=== PATIENT | female | born 1995 | race Caucasian/White ===

== ENCOUNTER 2016-04-03 08:31 | Inpatient (IN) | payer OTHER ==
[~2016-04-03] VITALS: Ht 170.2 cm; Wt 115.0 kg
[2016-04-03] VITALS (8 sets, daily range): BP systolic 122–142; BP diastolic 60–79
[~2016-04-03 08:31] MED LIST: ALBU1.25 INH; ZANTTAB9 PO
[2016-04-03] MEDS: LR 1,000 ML IV SCH ×4 (08:49→22:22)
[2016-04-03] MEDS ORDERED: PRENTAB9 PO (08:51)
[2016-04-03] MEDS ORDERED: BICITRA 30ML SOLN UDC PO ONE (09:00)
[2016-04-03 09:21] LABS: MEAN CORPUSCULAR HEMOGLOBIN 32.4 pg (27.0-33.0); RED CELL DISTRIBUTION WIDTH 12.9 % (11.5-14.5); WHITE BLOOD COUNT 10.3 K/mm3 (4.0-10.0)
[2016-04-03] MEDS ORDERED: MORPHINE PRES-FREE INJ 10 MG/10 ML VIAL (J2274) As Ordered ONE (12:55)
[2016-04-03] MEDS ORDERED: METOCLOPRAMIDE INJ 10MG/2ML VIAL (J2765) IV PRN ×2 (13:02→14:45)
[2016-04-03] MEDS ORDERED: ONDANSETRON 4MG/2ML VIAL (J2405) IV PRN ×2 (13:02→14:45)
[2016-04-03] MEDS ORDERED: NALBUPHINE HCL 10 MG/ML AMP (J2300) IV PRN (13:02)
[2016-04-03] MEDS ORDERED: NALOXONE INJ 0.4 MG/1 ML VIAL (J2310) IV PRN ×2 (13:02)
[2016-04-03] MEDS ORDERED: PHENYLephrine HCL 500 MCG/5 ML (100MCG/ML) SYRINGE (J2370) As Ordered ONE (13:36)
[2016-04-03] MEDS ORDERED: ONDANSETRON 4MG/2ML VIAL (J2405) As Ordered ONE (13:36)
[2016-04-03] MEDS ORDERED: OXYTOCIN INJ 10 UNITS/ML VIAL (J2590) As Ordered ONE (13:36)
[2016-04-03] MEDS ORDERED: RHOGAM 300 MCG (1500 IU) INJ (J2790) IM SCH (14:15)
[2016-04-03] MEDS ORDERED: MEASLES,MUMPS,RUBELLA VACCINE INJ (MMR-II) (90707) SC SCH (14:15)
[2016-04-03] MEDS ORDERED: MOM 30ML SUSPENSION UDC PO PRN (14:15)
[2016-04-03] MEDS ORDERED: PERCOCET 5MG/325MG TAB PO PRN ×3 (14:15→14:45)
[2016-04-03] MEDS ORDERED: DOCUSATE SODIUM 100 MG CAP PO PRN (14:15)
[2016-04-03] MEDS ORDERED: OXYTOCIN DRIP 30 UNITS in APPROPRIATE DILUENT 1 EA IV SCH (14:15)
[2016-04-03] MEDS ORDERED: MEPERIDINE INJ 25 MG/ML VIAL (J2175) IV PRN (14:45)
[2016-04-03] MEDS ORDERED: fentaNYL 100 MCG/2 ML INJECTION (J3010) IV PRN (14:45)
[2016-04-03] MEDS ORDERED: LR 1,000 ML IV SCH (14:45)
[2016-04-03] MEDS ORDERED: KETOROLAC 30 MG/ML VIAL (J1885) IV SCH (15:00)
--- NOTE | 2016-04-03 17:11 | RO ---
DATE OF PROCEDURE: 04/03/2016 PREOPERATIVE DIAGNOSIS: 1. Intrauterine at 39 weeks for primary section. 2. Breech presentation for indication for section. POSTOPERATIVE DIAGNOSES: 1. Intrauterine at 39 weeks for primary section. 2. Breech presentation for indication for section. PROCEDURE PERFORMED: Primary lower transverse section. SURGEON: Hortencia Ogden MD ASSISTANTS: Keiko Turner CNM Medical Student FRANCOIS Schultz III ANESTHESIA: Spinal. ESTIMATED BLOOD LOSS: 400 mL. INTRAVENOUS FLUIDS: 1500 mL of lactated Ringer's solution. URINE OUTPUT: 150 mL. PREOPERATIVE ANTIBIOTICS: 2 grams of Ancef. OPERATIVE FINDINGS: Liveborn male in a minh breech presentation. scores 8 and 9. Weight was 7 pounds 13 ounces, 3548 grams. SPECIMENS: Cord blood. DESCRIPTION OF PROCEDURE: After informed consent was obtained and written consent was reviewed, the patient was brought to the operating room where spinal anesthesia was obtained. She was then placed in the lithotomy position with a left lateral tilt. A Mejia catheter was then placed and set to gravity. She was then prepped and draped in a normal sterile fashion. A time-out in the operating room was then performed, identifying the patient, procedure to be performed as well as drug allergies. The anesthesia was then tested and deemed to be adequate. A Pfannenstiel skin incision was then made, and this incision was carried down to the underlying rectus fascia. The fascia was then scored, and this incision was extended bilaterally. The fascia was then dissected off the underlying rectus muscles both superiorly and inferiorly. The rectus muscles were in the midline. The peritoneum was then entered. The vesicouterine peritoneum was then identified, was tented and excised to create a bladder flap. The bladder blade was then placed to retract back the bladder. A curvilinear incision was then made in the lower uterine segment and amniotomy was then performed productive of clear fluid. breech was brought to the level of the incision. Lower extremities were then delivered, fetus was then delivered down to the level of the scapula where the upper extremities were then delivered followed by delivery of head. The cord was clamped times two and was cut, the infant was taken over to the warmer with a good cry. Cord blood was then obtained. The placenta was then drained and delivered grossly intact. The uterus was then exteriorized and cleared of all clots and debris. The uterine incision was then closed in two layers using #0 Vicryl in a running locking fashion, followed by a second layer in a running nonlocking fashion. The surgical sites were inspected and noted to be hemostatic. The uterus was then returned in the patient's abdomen where it was once again inspected and noted to be hemostatic. The anterior peritoneum was then reapproximated with #3-0 Vicryl. The rectus muscles were reapproximated with #3-0 Vicryl. The fascia was then closed with #0 Vicryl in a running nonlocking fashion. The subcutaneous tissue was then irrigated and suctioned. The Latrice's fascia was reapproximated with #3-0 Vicryl. Several subdermal stitches were placed of #3-0 Vicryl, and the skin was closed with #4-0 Monocryl in a subcuticular fashion. The incision was then cleaned and dried. Mastisol was applied above and below the incision. Steri-Strips were applied over the incision, and the incision was then dressed. The patient was then taken to recovery in stable condition. Counts were correct.
[2016-04-03] MEDS: KETOROLAC 30 MG/ML VIAL (J1885) IV SCH ×2 (17:21→22:23)
[2016-04-04 02:00] VITALS: BP 113/68
[2016-04-04] MEDS: LR 1,000 ML IV SCH (02:44)
[2016-04-04] MEDS: KETOROLAC 30 MG/ML VIAL (J1885) IV SCH ×2 (04:52→10:46)
[2016-04-04 05:37] VITALS: BP 130/63
[2016-04-04 07:44] LABS: MEAN CORPUSCULAR HEMOGLOBIN 30.5 pg (27.0-33.0); MEAN CORPUSCULAR HGB CONC 33.5 g/dl (32.0-36.5); WHITE BLOOD COUNT 10.8 K/mm3 (4.0-10.0)
[2016-04-04] MEDS: PRENATAL VITAMIN TAB PO SCH (08:07)
[2016-04-04] MEDS ORDERED: OXYC1TAB23 PO (09:43)
[2016-04-04] MEDS ORDERED: COLA100C PO (09:45)
[2016-04-04] MEDS ORDERED: IBUP600T26 PO (09:45)
[2016-04-04 10:00] VITALS: BP 141/84
[2016-04-04 14:00] VITALS: BP 136/77
[2016-04-04 18:21] VITALS: BP 134/69
[2016-04-04] MEDS: IBUPROFEN 800 MG TAB PO SCH (18:27)
[2016-04-05] MEDS: IBUPROFEN 800 MG TAB PO SCH (03:11)
[2016-04-05 06:07] VITALS: BP 126/77
--- NOTE | 2016-04-05 08:46 | DSES ---
DATE OF ADMISSION: 04/03/2016 DATE OF DISCHARGE: 04/05/2016 ADMITTING DIAGNOSES: 1. 39 weeks gestation. 2. Breech presentation. DISCHARGE DIAGNOSES: 1. 39 weeks gestation. 2. Breech presentation. 3. Status post primary low transverse section. DISCHARGE SUMMARY: The patient is a 20-year-old, now para 1. She was admitted at 39 weeks gestation with the diagnosis of breech presentation. Given the breech presentation, she underwent a primary low transverse section. This was uncomplicated. By postoperative day #2, she was meeting all discharge criteria. Her pain was well-controlled with oral pain medications. She was ambulating without any difficulty. Lochia was decreasing and minimal. Voiding spontaneously. Tolerating a regular diet. No fever, chills, nausea, vomiting, headache, shortness breath, or chest pain. She was breast-feeding. Vitals on the date of discharge, blood pressure was normotensive. Normal heart rate. Afebrile. Urine output spontaneous and adequate in volume. Heart regular rate and rhythm. No murmurs, gallops, or rubs. Lungs clear to auscultation bilaterally. No wheeze, crackles, rales, or rhonchi. Abdomen soft, nontender, nondistended. Uterine fundus was firm at 2 cm below the umbilicus. Incision was clean, dry and intact without any erythema or induration. Extremities nonedematous and nontender. LABS: Preoperative hemoglobin/hematocrit 12.9/35.7, postoperative hemoglobin/hematocrit 11.1/33.0. ASSESSMENT/PLAN: Postoperative day #2 recovering appropriately, hemodynamically stable, afebrile, with good pain control. She was discharged home with routine fever, infectious pain and bleeding precautions. Her discharge medications include Percocet, Motrin and Colace. She is to follow up in the office in 2 weeks for incision check. JAZMIN
[2016-04-05] MEDS: PRENATAL VITAMIN TAB PO SCH (09:01)
[2016-04-05] MEDS ORDERED: OXYC1TAB23 PO ×2 (09:59→10:00)
== END 2016-04-05 10:55 | disposition home or self-care (01) | DRG 540 ==
LOC: M LDI 08:31 → M OBS 15:55
PROVIDERS: ADMIT Obstetrics & Gynecology; ATTEND Obstetrics & Gynecology
PROC: 10D00Z1 Extraction of Products of Conception, Low, Open Approach (ICD-10-PCS; principal; 2016-04-03 10:30)
DX: O64.1XX0 Obstructed labor due to breech presentation, not applicable or unspecified (principal); Z37.0 Single live birth; Z3A.39 39 weeks gestation of pregnancy

== ENCOUNTER → 2017-03-06 | Outpatient (REF) | payer OTHER ==
[~2017-03-06] MED LIST changes: +COLA100C5 PO; +IBUP-1022 PO; +OXYC1TAB23 PO; +PRENTAB9 PO
[2017-03-06 13:57] LABS: FOLATE 7.6 NG/ML; VITAMIN B12 LEVEL 458 PG/ML
[2017-03-06 13:59] LABS: FREE T4 1.03 NG/DL (0.76-1.46); TOTAL PROTEIN 7.6 GM/DL (6.4-8.2)
[2017-03-07 12:30] LABS: ALBUMIN 4.39 GM/DL (3.29-5.55); ALBUMIN % 57.7 % (55.8-66.1); GAMMA GLOBULIN % 15.5 % (11.1-18.8)
== END ==
LOC: M LABNEURO 13:00
PROVIDERS: ATTEND Psychiatry & Neurology Neurology
DX: G62.9 Polyneuropathy, unspecified (principal)

== ENCOUNTER → 2017-04-04 | Outpatient (CLI) | payer OTHER, MEDICAID | LOC: M PAIN 08:30 | DX: M46.96 Unspecified inflammatory spondylopathy, lumbar region (principal); G43.909 Migraine, unspecified, not intractable, without status migrainosus; K21.9 Gastro-esophageal reflux disease without esophagitis; Z79.899 Other long term (current) drug therapy; Z88.8 Allergy status to other drugs, medicaments and biological substances | CPT/HCPCS: G0463 ==

== ENCOUNTER → 2017-04-04 | Outpatient (CLI) | payer OTHER | LOC: M RAD 10:21 | DX: M79.1 Myalgia (principal) | CPT/HCPCS: 72080 ==

== ENCOUNTER → 2017-04-30 | Outpatient (CLI) | payer OTHER ==
[~2017-04-30] MED LIST changes: -ALBU1.25 INH; +BUPIVACAINE HCL 0.25% 10 ML VIAL As Ordered; +BUPIVACAINE HCL 0.25% 30 ML VIAL As Ordered; -COLA100C5 PO; -IBUP-1022 PO; -OXYC1TAB23 PO; -PRENTAB9 PO; +TRIAMCINOLONE ACETONIDE SUSP 40 MG/ML VIAL (J3301) As Ordered; -ZANTTAB9 PO
== END ==
LOC: M PAIN 13:45
DX: G89.29 Other chronic pain (principal); M54.5 Low back pain; M79.1 Myalgia; G43.909 Migraine, unspecified, not intractable, without status migrainosus; Z79.899 Other long term (current) drug therapy; Z88.8 Allergy status to other drugs, medicaments and biological substances
CPT/HCPCS: J3301

== ENCOUNTER → 2017-05-15 | Outpatient (CLI) | payer OTHER | LOC: M PAIN 09:30 | DX: M79.1 Myalgia (principal); M46.96 Unspecified inflammatory spondylopathy, lumbar region; Z79.899 Other long term (current) drug therapy; Z88.8 Allergy status to other drugs, medicaments and biological substances | CPT/HCPCS: G0463 ==

== ENCOUNTER → 2017-06-03 | Outpatient (CLI) | payer OTHER ==
[2017-06-03 14:44] LABS: BASO # 0.1 10^3/uL (0.0-0.2); BASO % 0.5 % (0.0-1.0); HEMATOCRIT 42.4 % (36.0-47.0); HEMOGLOBIN 14.6 g/dl (12.0-16.0); IMMATURE GRANULOCYTE % 0.5 % (0-3.0); LYMPH # 2.7 10^3/uL (1.5-6.5); LYMPH % 25.4 % (24.0-44.0); MEAN CORPUSCULAR HEMOGLOBIN 30.4 pg (27.0-33.0); MEAN CORPUSCULAR HGB CONC 34.4 g/dl (32.0-36.5); MEAN CORPUSCULAR VOLUME 88.3 fl (80.0-96.0); MONO # 0.7 10^3/uL (0.0-0.8); MONO % 6.6 % (0.0-5.0); NEUTROPHILS # 7.2 10^3/uL (1.8-7.7); PLATELET COUNT, AUTOMATED 286 10^3/uL (150-450); RED CELL DISTRIBUTION WIDTH 12.2 % (11.5-14.5); WHITE BLOOD COUNT 10.7 10^3/uL (4.0-10.0)
[2017-06-03 14:53] LABS: TOTAL 25(OH) VITAMIN D 21.6 NG/ML (30.0-100.0)
== END ==
LOC: M LAB 13:53
DX: R53.83 Other fatigue (principal); R63.5 Abnormal weight gain
CPT/HCPCS: 82306

== ENCOUNTER → 2017-06-18 | Outpatient (CLI) | payer OTHER ==
[~2017-06-18] MED LIST changes: +diazePAM 5 MG TAB As Ordered; +oxyCODONE 5MG TAB As Ordered
== END ==
LOC: M PAIN 15:15
DX: G89.29 Other chronic pain (principal); M79.1 Myalgia; M54.5 Low back pain; G43.909 Migraine, unspecified, not intractable, without status migrainosus; Z79.899 Other long term (current) drug therapy; Z88.8 Allergy status to other drugs, medicaments and biological substances
CPT/HCPCS: J3301

== ENCOUNTER → 2017-07-08 | Outpatient (CLI) | payer OTHER | LOC: M PAIN 13:45 | DX: M79.1 Myalgia (principal); G43.909 Migraine, unspecified, not intractable, without status migrainosus; M54.5 Low back pain; Z79.899 Other long term (current) drug therapy; Z88.8 Allergy status to other drugs, medicaments and biological substances | CPT/HCPCS: G0463 ==

== ENCOUNTER → 2017-09-13 | Outpatient (CLI) | payer OTHER | LOC: M PAIN 09:15 | DX: M79.1 Myalgia (principal); M46.96 Unspecified inflammatory spondylopathy, lumbar region; G43.909 Migraine, unspecified, not intractable, without status migrainosus; Z79.899 Other long term (current) drug therapy; Z88.8 Allergy status to other drugs, medicaments and biological substances | CPT/HCPCS: G0463 ==

== ENCOUNTER → 2017-11-13 | Outpatient (CLI) | payer OTHER | LOC: M PAIN 09:45 | DX: M79.1 Myalgia (principal); M46.96 Unspecified inflammatory spondylopathy, lumbar region; G43.909 Migraine, unspecified, not intractable, without status migrainosus; E66.01 Morbid (severe) obesity due to excess calories; Z68.41 Body mass index [BMI] 40.0-44.9, adult; Z79.899 Other long term (current) drug therapy; Z88.8 Allergy status to other drugs, medicaments and biological substances | CPT/HCPCS: G0463 ==

== ENCOUNTER → 2017-12-11 | Outpatient (CLI) | payer OTHER ==
[~2017-12-11] MED LIST changes: -diazePAM 5 MG TAB As Ordered; -oxyCODONE 5MG TAB As Ordered
== END ==
LOC: M PAIN 09:15
DX: G89.29 Other chronic pain (principal); M79.1 Myalgia; G43.909 Migraine, unspecified, not intractable, without status migrainosus; Z79.3 Long term (current) use of hormonal contraceptives; Z79.899 Other long term (current) drug therapy; Z88.8 Allergy status to other drugs, medicaments and biological substances
CPT/HCPCS: J3301

== ENCOUNTER → 2018-01-10 | Outpatient (CLI) | payer OTHER | LOC: M PAIN 15:00 | DX: M79.18 Myalgia, other site (principal); M46.96 Unspecified inflammatory spondylopathy, lumbar region; G43.909 Migraine, unspecified, not intractable, without status migrainosus; E66.01 Morbid (severe) obesity due to excess calories; Z68.41 Body mass index [BMI] 40.0-44.9, adult; Z79.899 Other long term (current) drug therapy; Z88.8 Allergy status to other drugs, medicaments and biological substances | CPT/HCPCS: G0463 ==

== ENCOUNTER → 2018-04-15 | Outpatient (CLI) | payer OTHER ==
[~2018-04-15] MED LIST changes: +ALBU1.25 INH; -BUPIVACAINE HCL 0.25% 10 ML VIAL As Ordered; -BUPIVACAINE HCL 0.25% 30 ML VIAL As Ordered; +COLA100C5 PO; +IBUP-1022 PO; +OXYC1TAB23 PO; +PRENTAB9 PO; -TRIAMCINOLONE ACETONIDE SUSP 40 MG/ML VIAL (J3301) As Ordered; +ZANTTAB9 PO
== END ==
LOC: M LAB 13:57
PROVIDERS: ATTEND Physician Assistant Medical
DX: E55.0 Rickets, active (principal)

== ENCOUNTER 2019-03-23 09:45 | Inpatient (IN) | payer OTHER ==
[~2019-03-23] VITALS: Ht 170.2 cm; Wt 116.3 kg
[~2019-03-23 09:45] MED LIST changes: +MAALOX 30 ML SUSP *UDC PO PRN; +MOM 30ML SUSPENSION UDC PO PRN; +SERTRALINE 100 MG TAB PO SCH
[2019-03-23] MEDS ORDERED: NS 1,000 ML IV ONE ×2 (10:30→12:45)
[2019-03-23 10:45] LABS: BASO % 0.3 % (0.0-1.0); HEMATOCRIT 36.8 % (36.0-47.0); HEMOGLOBIN 12.1 g/dl (12.0-15.5); LYMPH # 0.8 10^3/uL (1.5-5.0); LYMPH % 12.1 % (24.0-44.0); MEAN CORPUSCULAR HEMOGLOBIN 30.3 pg (27.0-33.0); MEAN CORPUSCULAR HGB CONC 32.9 g/dl (32.0-36.5); MEAN CORPUSCULAR VOLUME 92.2 fl (80.0-96.0); MONO # 0.5 10^3/uL (0.0-0.8); MONO % 7.2 % (0.0-5.0); NEUTROPHILS # 5.5 10^3/uL (1.5-8.5); PLATELET COUNT, AUTOMATED 209 10^3/uL (150-450); RED BLOOD COUNT 3.99 10^6/uL (4.00-5.40); WHITE BLOOD COUNT 6.8 10^3/uL (4.0-10.0)
[2019-03-23] MEDS ORDERED: ACETAMINOPHEN 500 MG TAB PO ONE ×2 (10:45)
[2019-03-23] MEDS ORDERED: XULA1DIS TD (10:58)
[2019-03-23] MEDS ORDERED: IBUP80TA PO (10:58)
[2019-03-23] MEDS ORDERED: SERT-138 PO (10:58)
[2019-03-23] MEDS ORDERED: TOPI100T9 PO (10:58)
[2019-03-23 11:22] LABS: ALT/SGPT 23 U/L (12-78); BILIRUBIN,DIRECT 0.2 MG/DL (0.0-0.2); BILIRUBIN,TOTAL 0.4 MG/DL (0.2-1.0); BLOOD UREA NITROGEN 9 MG/DL (7-18); CARBON DIOXIDE LEVEL 23 MEQ/L (21-32); CHLORIDE LEVEL 105 MEQ/L (98-107); CK-MB VALUE MASS < 1.0 NG/ML (<3.6); CPK CREATINE PHOSPHOKINASE 70 U/L (26-192); CREATININE FOR GFR 0.71 MG/DL (0.55-1.30); FREE T4 1.08 NG/DL (0.76-1.46); GLOMERULAR FILTRATION RATE > 60.0 (>60); GLUCOSE, FASTING 91 MG/DL (70-100); LIPASE 78 U/L (73-393); MB/CK RELATIVE INDEX 1.43 (< OR =4); POTASSIUM SERUM 3.3 MEQ/L (3.5-5.1); SODIUM LEVEL 137 MEQ/L (136-145); TOTAL PROTEIN 6.7 GM/DL (6.4-8.2); TROPONIN I < 0.02 NG/ML (< 0.10)
--- NOTE | 2019-03-23 11:55 | REP ---
Clinical: Chest pain. Technique: Portable AP view of the chest. Comparison: None. Findings: Large right lower lobe opacity suggests infiltrate/pneumonia. Correlation required. Follow-up is recommended. Impression: Large right lower lobe opacity. Consider PA and lateral chest x-ray for more definitive evaluation. Electronically Signed by Andrew Montoya MD 03/23/2019 11:46 A
[2019-03-23] MEDS ORDERED: IBUPROFEN 800 MG TAB PO ONE (12:00)
[2019-03-23] MEDS ORDERED: IBUPROFEN 800 MG TAB PO PRN (12:00)
[2019-03-23] MEDS ORDERED: POTASSIUM CHLORIDE 10 MEQ SR TABLET PO ONE ×2 (12:00→12:45)
[2019-03-23 12:06] LABS: INFLUENZA A AMPLIFICATION NEGATIVE (NEGATIVE); INFLUENZA B AMPLIFICATION NEGATIVE (NEGATIVE)
[2019-03-23] MEDS ORDERED: AZITHROMYCIN INJ 500 MG, VIAL MATE ADAPTER 1 EACH in D5W 250 ML IV ONE (12:30)
[2019-03-23] MEDS ORDERED: cefTRIAXone SOD 2 GM in D5W MINI-BAG PLUS 50 ML IV ONE (12:30)
[2019-03-23] MEDS ORDERED: ISOVUE-370 76% 100ML VIAL (Q9967) As Ordered ONE (12:40)
[2019-03-23] MEDS ORDERED: IPRATROPIUM 0.5MG/ALBUTEROL 2.5MG INH SOL UD 3ML (DUONEB)(J7620) NEB PRN (13:00)
[2019-03-23] MEDS ORDERED: RANI75TA39 PO (13:16)
--- NOTE | 2019-03-23 13:24 | REP ---
Clinical: Chest pain. Abnormal x-ray. Technique: Axial contrast enhanced images from the thoracic inlet to the upper abdomen with coronal and sagittal re-formations. Findings: There is complete consolidation with air bronchograms involving the right middle lobe and associated reactive mediastinal and right hilar adenopathy. Patchy infiltrates are also identified within the bilateral lower lobes and findings are compatible with acute multifocal pneumonia. No effusion. No pneumothorax. Mediastinum demonstrates normal pulmonary vasculature, thoracic aorta and heart/pericardium. Surrounding musculoskeletal structures are intact. Impression: Multi focal pneumonia primarily involving the right middle lobe. Electronically Signed by Andrew Montoya MD 03/23/2019 01:16 P
[2019-03-23] MEDS ORDERED: amLODIPine 5 MG TAB PO ONE (13:30)
--- NOTE | 2019-03-23 13:34 | HPEPDOC ---
General Date of Admission 03/23/19 Date of Service: Mar 23, 2019 Chief Complaint The patient is a 23-year-old female admitted with a reason for visit of Fever/Chest Pain. Source: Patient Exam Limitations: No limitations Timing/Duration: Other (5 days) Severity: Other (, not applicable) Associated Symptoms: Fever History of Present Illness This is 23 years old, obese, white female past medical history of migraine, anxiety disorder developed fever, cough, dizziness, lower back pain, chest pain since last 5 days, chest pain, exact has abated by coughing all over the chest, nonradiating, relieved with ibuprofen, but persistent in character also associated with back pain, cough and fever since last 5 days. Patient was diagnosed with a right lower lobe infiltrate on chest x-ray and being admitted for community acquired pneumonia. Home Medications Scheduled Norelgestromin/Ethin.estradiol (Xulane Patch) 1 Each Patch.tdwk, 1 PATCH TD ASDI RECTED, (Reported) APPLY WEEKLY FOR 3 WEEKS THEN 1 WEEK OFF, REMOVED PATCH ON 03/19/19 FOR WEEK OFF Ranitidine HCl (Ranitidine HCl) 75 Mg Tablet, 75 MG PO DAILY, (Reported) Sertraline HCl (Sertraline HCl) 100 Mg Tablet, 100 MG PO DAILY, (Reported) Topiramate (Topiramate) 100 Mg Tablet, 100 MG PO QHS, (Reported) Scheduled PRN Ibuprofen (Ibuprofen) 800 Mg Tablet, 800 MG PO Q6H PRN for PAIN, (Reported) Allergies Coded Allergies: No Known Drug Allergies (Verified Allergy, Unknown, 03/23/19) Past Medical History Medical History Migraine headache, anxiety Surgical History None Family History Significant Family History: No pertinent family hx Social History * Smoker: Denies Alcohol: Denies Drugs: denies A-FIB/CHADSVASC A-FIB History Current/History of A-Fib/PAF?: No Review of Systems Constitutional: Reports: Fever, Weakness Eyes: Denies: Pain, Vision change, Conjunctivae inflammation, Eyelid inflammation, Redness, Other ENT: Denies: Head Aches, Ear Pain, Dysphagia, Sinus Congestion, Post Nasal Drip, Sore Throat, Epistaxis, Other Symptoms Skin: Denies: Rash, Lesions, Jaundice, Bruising, Itching, Dry, Breakdown, Nail Changes, Other Pulmonary: Reports: Cough, Pleuritic Chest Pain Cardiovascular: Reports: Chest Pain Gastrointestinal: Denies: Nausea, Vomiting, Abdominal Pain, Diarrhea, Constipation, Melena, Hematochezia, Other Symptoms Genitourinary: Denies: Dysuria, Frequency, Incontinence, Hematuria, Retention, Other Symptoms Hematologic: Denies: Bruising, Bleeding Excessively, Petecchia, Purpura, Enlarged Lymph Nodes, Other Hematologic Endocrine: Denies: Polydipsia, Polyphagia, Polyuria, Heat Intolerance, Cold Intolerance, Other Endocrine Sx Musculoskeletal: Reports: Back Pain Neurological: Denies: Weakness, Numbness, Incoordination, Change in speech, Confusion, Seizures, Other Symptoms Psych: Denies: Mood Normal, Anxiety, Depression, Memory Issues, Thoughts of Self Harm, Anger, Thoughts of Harming Other, Other Psych Physical Examination General Exam: Positive: Alert, Cooperative Eye Exam: Positive: PERRLA ENT Exam: Positive: Atraumatic, Mucous membr. moist/pink Neck Exam: Positive: Supple Chest Exam: Positive: Diminished, Other (. Diminished breath sounds right lower lobe, otherwise no wheezing, rales, rhonchi) Heart Exam: Positive: Rate Normal, Normal S1, Normal S2 Abdomen Exam: Positive: Normal bowel sounds, Soft, Tenderness Extremity Exam: Positive: Normal pulses Skin Exam: Positive: Nl turgor and temperature Neuro Exam: Positive: Strength at 5/5 X4 ext, Sensation Intact, Cranial Nerves 3-12 NL Psych Exam: Positive: Mood NL, Oriented x 3 Vital Signs Vital Signs Date Time Temp Pulse Resp B/P (MAP) Pulse Ox O2 Delivery O2 Flow Rate FiO2 03/23/19 13:11 105 175/80 (111) 97 03/23/19 12:00 96 Room Air 03/23/19 11:41 101.6 Laboratory Data Labs 24H Laboratory Tests 2 03/23/19 10:29: Immature Granulocyte % (Auto) 0.4, Neutrophils (%) (Auto) 80.0H, Lymphocytes (%) (Auto) 12.1L, Monocytes (%) (Auto) 7.2H, Eosinophils (%) (Auto) 0.0, Basophils (%) (Auto) 0.3, Neutrophils # (Auto) 5.5, Lymphocytes # (Auto) 0.8L, Monocytes # (Auto) 0.5, Eosinophils # (Auto) 0.0, Basophils # (Auto) 0.0, Nucleated Red Blood Cells % (auto) 0.0, Anion Gap 9, Glomerular Filtration Rate > 60.0, Lactic Acid Level 1.6, Calcium Level 8.0L, Total Bilirubin 0.4, Direct Bilirubin 0.2, Aspartate Amino Transf (AST/SGOT) 18, Alanine Aminotransferase (ALT/SGPT) 23, Alkaline Phosphatase 54, Total Creatine Kinase 70, Creatine Kinase MB < 1.0, Creatine Kinase MB Relative Index 1.43, Troponin I < 0.02, Total Protein 6.7, Albumin 3.0L, Albumin/Globulin Ratio 0.81L, Lipase 78, Thyroid Stimulating Hormone (TSH) 1.840, Free Thyroxine 1.08, Influenza Type A (RT-PCR) NEGATIVE, Influenza Type B (RT-PCR) NEGATIVE 03/23/19 10:35: POC Beta HCG, Quantitative < 5.0 CBC/BMP Laboratory Tests 03/23/19 10:29 Microbiology Microbiology 03/23/19 Blood Culture, Received Pending 03/23/19 Blood Culture, Received Pending Problems (1) Community acquired pneumonia Status: Acute Problem Text: 23 years old, obese, white female, history of anxiety and migraine headache came in with fever, call pleuritic chest pain, back pain since last 5 days. On chest x-ray there is a right lower lobe opacity WBC count of 6.8, hemoglobin 12, platelets 209. Electrolytes, lites are normal except potassium is 3.3, BUN 9, creatinine 0.71 Influenza a and B are negative Admit patient to medical floor with telemetry secondary to uncontrolled hypertension and nonspecific chest pain Saline lock, will not start IV fluid as patient's blood pressure is 180/90 at t he present time Will start Rocephin 1 g IV every 24 hours and Zithromax 500 mg IV every 24 hours DuoNeb every 4 hours when necessary Sputum cultures Urine for Legionella and serum for mycoplasma Urine for beta strep CT chest has been done but report is still pending DVT prophylaxis with Lovenox 2 g sodium diet . He is tolerating (2) Hypokalemia Status: Acute Problem Text: Low potassium corrected in ED Will follow labs in a.m. and corrected as needed Also magnesium level has been requested for the morning (3) HTN (hypertension) Status: Acute Problem Text: As per patient, has no history of hypertension Will give him Norvasc 5 mg by mouth 1 dose and also observe the response Could be situational hypertension secondary to infection and anxiety Needs close monitoring before she is started on regular dose of antihypertensive meds (4) Atypical chest pain Status: Acute Problem Text: Atypical chest pain most likely secondary to pneumonia and coughing. It is pleuritic in nature , But since patient has a history of hypertension and obesity. He will run a panel of troponins as well Patient is on compliance monitor, which can be DC'd tomorrow once the troponins are negative , No further intervention at the present time Plan / VTE VTE Prophylaxis Ordered?: Yes TIFFANIE BLOOM MD Mar 23, 2019 13:34
[2019-03-23] MEDS ORDERED: AZITHROMYCIN INJ 500 MG, VIAL MATE ADAPTER 1 EACH in D5W 250 ML IV SCH (14:00)
[2019-03-23] MEDS ORDERED: ACETAMINOPHEN TAB 650MG DOSE (2X325MG) PO PRN (14:00)
[2019-03-23 14:25] VITALS: BP 124/70
[2019-03-23] MEDS: ENOXAPARIN 40 MG/0.4 ML SYRINGE (J1650) SC SCH (14:45)
[2019-03-23] MEDS: DOCUSATE SODIUM 100 MG CAP PO SCH ×2 (14:46→20:48)
[2019-03-23 14:47] VITALS: BP 124/70
[2019-03-23] MEDS ORDERED: cefTRIAXone SOD 1 GM in D5W MINI-BAG PLUS 50 ML IV SCH (15:00)
--- NOTE | 2019-03-23 19:17 | ECGEPIP ---
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
[2019-03-23] MEDS: ONDANSETRON 4 MG TAB (S0181) PO PRN (19:47)
[2019-03-23] MEDS: TOPIRAMATE (TopAMAX) 100 MG TAB PO SCH (20:49)
[2019-03-23 22:00] VITALS: BP 123/74
[2019-03-24 06:00] VITALS: BP 127/70
[2019-03-24 06:36] LABS: HEMATOCRIT 34.3 % (36.0-47.0); HEMOGLOBIN 11.4 g/dl (12.0-15.5); MEAN CORPUSCULAR HEMOGLOBIN 30.3 pg (27.0-33.0); MEAN CORPUSCULAR HGB CONC 33.2 g/dl (32.0-36.5); MEAN CORPUSCULAR VOLUME 91.2 fl (80.0-96.0); PLATELET COUNT, AUTOMATED 201 10^3/uL (150-450); RED BLOOD COUNT 3.76 10^6/uL (4.00-5.40); WHITE BLOOD COUNT 3.9 10^3/uL (4.0-10.0)
[2019-03-24 07:02] LABS: ALBUMIN 2.4 GM/DL (3.2-5.2); ALT/SGPT 22 U/L (12-78); BILIRUBIN,TOTAL 0.4 MG/DL (0.2-1.0); BLOOD UREA NITROGEN 9 MG/DL (7-18); CARBON DIOXIDE LEVEL 23 MEQ/L (21-32); CHLORIDE LEVEL 108 MEQ/L (98-107); CREATININE FOR GFR 0.72 MG/DL (0.55-1.30); GLOMERULAR FILTRATION RATE > 60.0 (>60); GLUCOSE, FASTING 86 MG/DL (70-100); MAGNESIUM LEVEL 2.2 MG/DL (1.8-2.4); POTASSIUM SERUM 3.8 MEQ/L (3.5-5.1); SODIUM LEVEL 138 MEQ/L (136-145); TOTAL PROTEIN 6.5 GM/DL (6.4-8.2); TROPONIN I < 0.02 NG/ML (< 0.10)
[2019-03-24] MEDS: DOCUSATE SODIUM 100 MG CAP PO SCH ×2 (09:00→20:29)
[2019-03-24] MEDS: ENOXAPARIN 40 MG/0.4 ML SYRINGE (J1650) SC SCH (09:17)
[2019-03-24] MEDS: SERTRALINE 100 MG TAB PO SCH (09:18)
[2019-03-24] MEDS: FAMOTIDINE 20 MG TAB PO SCH (09:18)
[2019-03-24] MEDS: cefTRIAXone SOD 1 GM in D5W MINI-BAG PLUS 50 ML IV SCH (13:11)
[2019-03-24 14:00] VITALS: BP 124/71
[2019-03-24] MEDS: AZITHROMYCIN INJ 500 MG, VIAL MATE ADAPTER 1 EACH in D5W 250 ML IV SCH (14:17)
[2019-03-24] MEDS: ONDANSETRON 4 MG TAB (S0181) PO PRN (15:24)
--- NOTE | 2019-03-24 18:24 | IPNPDOC ---
Date Seen The patient was seen on 03/24/19. Progress Note SUBJECTIVE: 23-year-old female with past medical history of anxiety/depression, was admitted for pneumonia. She has been treated with Zithromax and ceftriaxone, was febrile overnight, reports improvement in dyspnea and cough is now productive of yellow/green sputum. She is improvement in ambulation, no other complaints at this time. She denies any chest pain, nausea, vomiting, abdominal pain, constipation or diarrhea. 10 point review of system is negative except for above PHYSICAL EXAMINATION: VITAL SIGNS: Please see below. GENERAL: No distress HEENT: Normocephalic, atraumatic, moist mucous membranes NECK: Supple CARDIOVASCULAR EXAMINATION: S1, S2, no murmurs RESPIRATORY EXAMINATION: Scattered rhonchi, no wheezing ABDOMINAL EXAMINATION: Soft, nontender, nondistended, positive bowel sounds EXTREMITIES: Range of motion intact SKIN: No rash NEUROLOGICAL EXAMINATION: Alert and oriented 3, no focal deficits PSYCHIATRIC EXAMINATION: Calm and cooperative LABORATORY DATA, IMAGING STUDIES, MICROBIOLOGY: Please see below. ASSESSMENT AND PLAN: 23-year-old female with past medical history of anxiety/depression, admitted for pneumonia. PROBLEMS: 1. Pneumonia: Continue his and ceftriaxone, febrile overnight, will monitor today, plan for discharge tomorrow if remains afebrile for over 24 hours.. 2. Anxiety/depression: Continue sertraline. 3. GERD: Continue Pepcid. DVT prophylaxis: Lovenox. Lauren wall: Home Pepcid VS, I&O, 24H, Fishbone Vital Signs/I&O Vital Signs Date Time Temp Pulse Resp B/P (MAP) Pulse Ox O2 Delivery O2 Flow Rate FiO2 03/24/19 14:00 98.5 86 18 124/71 (88) 97 Room Air I&O- Last 24 Hours up to 6 AM 03/24/19 06:00 Intake Total 1620 ml Output Total 3675 ml Balance -2055 ml Laboratory Data 24H LABS Laboratory Tests 2 03/23/19 21:48: Troponin I < 0.02 03/24/19 06:07: Troponin I < 0.02, Nucleated Red Blood Cells % (auto) 0.0, Anion Gap 7L, Glomerular Filtration Rate > 60.0, Calcium Level 8.0L, Magnesium Level 2.2, Total Bilirubin 0.4, Aspartate Amino Transf (AST/SGOT) 18, Alanine Aminotransferase (ALT/SGPT) 22, Alkaline Phosphatase 44L, Total Protein 6.5, Albumin 2.4L, Albumin/Globulin Ratio 0.59L CBC/BMP Laboratory Tests 03/24/19 06:07 Microbiology Microbiology 03/23/19 Gram Stain - Final, Resulted 03/23/19 Sputum Culture, Resulted Pending 03/23/19 Blood Culture - Preliminary, Resulted No growth after 24 hours . All specim... 03/23/19 Blood Culture - Preliminary, Resulted No growth after 24 hours . All specim... CHERRY FINK MD Mar 24, 2019 18:24
[2019-03-24] MEDS: TOPIRAMATE (TopAMAX) 100 MG TAB PO SCH (20:28)
[2019-03-24 22:00] VITALS: BP 138/81
[2019-03-25 06:00] VITALS: BP 115/70
[2019-03-25 06:20] LABS: HEMATOCRIT 35.7 % (36.0-47.0); HEMOGLOBIN 11.6 g/dl (12.0-15.5); MEAN CORPUSCULAR HEMOGLOBIN 29.7 pg (27.0-33.0); MEAN CORPUSCULAR HGB CONC 32.5 g/dl (32.0-36.5); MEAN CORPUSCULAR VOLUME 91.5 fl (80.0-96.0); PLATELET COUNT, AUTOMATED 232 10^3/uL (150-450); WHITE BLOOD COUNT 3.7 10^3/uL (4.0-10.0)
[2019-03-25 06:43] LABS: BLOOD UREA NITROGEN 11 MG/DL (7-18); CALCIUM LEVEL 8.9 MG/DL (8.5-10.1); CARBON DIOXIDE LEVEL 23 MEQ/L (21-32); CHLORIDE LEVEL 108 MEQ/L (98-107); CREATININE FOR GFR 0.79 MG/DL (0.55-1.30); GLOMERULAR FILTRATION RATE > 60.0 (>60); GLUCOSE, FASTING 83 MG/DL (70-100); PHOSPHORUS LEVEL 4.5 MG/DL (2.5-4.9); POTASSIUM SERUM 3.7 MEQ/L (3.5-5.1); SODIUM LEVEL 140 MEQ/L (136-145)
[2019-03-25] MEDS: DOCUSATE SODIUM 100 MG CAP PO SCH (08:07)
[2019-03-25] MEDS: ENOXAPARIN 40 MG/0.4 ML SYRINGE (J1650) SC SCH (08:07)
[2019-03-25] MEDS: SERTRALINE 100 MG TAB PO SCH (08:07)
[2019-03-25] MEDS: FAMOTIDINE 20 MG TAB PO SCH (08:07)
[2019-03-25] MEDS ORDERED: POTASSIUM CHLORIDE 10 MEQ SR TABLET PO ONE (09:00)
[2019-03-25] MEDS ORDERED: LEVA750T7 PO (10:59)
[2019-03-25] MEDS: cefTRIAXone SOD 1 GM in D5W MINI-BAG PLUS 50 ML IV SCH (11:51)
[2019-03-25] MEDS: AZITHROMYCIN INJ 500 MG, VIAL MATE ADAPTER 1 EACH in D5W 250 ML IV SCH (12:43)
--- NOTE | 2019-03-25 20:49 | DS.PDOC ---
Discharge Summary General Date of Admission Mar 23, 2019 at 13:17 Date of Discharge 03/25/19 Attending Physician: CHERRY FINK MD Discharge Summary PROCEDURES PERFORMED DURING STAY: None. ADMITTING DIAGNOSES: 1. Pneumonia. DISCHARGE DIAGNOSES: 1. Pneumonia. COMPLICATIONS/CHIEF COMPLAINT: Pneumonia. HISTORY OF PRESENT ILLNESS: 23-year-old female was admitted for pneumonia, tr eated with azithromycin and ceftriaxone with significant improvement in symptoms. She is currently having a productive cough but no dyspnea on exertion, afebrile for almost 48 hours. She is clinically and hemodynamically stable for discharge and outpatient follow-up. Patient will be discharged on Levaquin 750 mg daily for 5 more days to complete her antibiotic regimen. HOSPITAL COURSE: As above. DISCHARGE MEDICATIONS: Please see below. ALLERGIES: Please see below. PHYSICAL EXAMINATION: VITAL SIGNS: Please see below. GENERAL: No distress HEENT: Normocephalic, atraumatic, moist mucous membranes NECK: Supple CARDIOVASCULAR EXAMINATION: S1, S2, no murmurs RESPIRATORY EXAMINATION: Scattered rhonchi, no wheezing ABDOMINAL EXAMINATION: Soft, nontender, nondistended, positive bowel sounds EXTREMITIES: Range of motion intact SKIN: No rash NEUROLOGICAL EXAMINATION: Alert and oriented 3, no focal deficits PSYCHIATRIC EXAMINATION: Calm and cooperative LABORATORY DATA: Please see below. IMAGING: CT scan showing right middle lobe pneumonia PROGNOSIS: Good ACTIVITY: As tolerated. DIET: Regular DISCHARGE PLAN: Follow with PCP in 1-2 weeks DISPOSITION: 01 Home, Self-Care. DISCHARGE INSTRUCTIONS: 1. As above. DISCHARGE CONDITION: Stable. TIME SPENT ON DISCHARGE: Greater than 28 minutes. Vital Signs/I&Os Vital Signs Date Time Temp Pulse Resp B/P (MAP) Pulse Ox O2 Delivery O2 Flow Rate FiO2 03/25/19 06:00 95.9 66 18 115/70 (85) 95 Room Air I&O- Last 24 Hours up to 6 AM 03/25/19 06:00 Intake Total 3700 ml Output Total 2700 ml Balance 1000 ml Laboratory Data Labs 24H Laboratory Tests 2 03/25/19 05:33: Nucleated Red Blood Cells % (auto) 0.0, Anion Gap 9, Glomerular Filtration Rate > 60.0, Calcium Level 8.9, Phosphorus Level 4.5 CBC/BMP Laboratory Tests 03/25/19 05:33 Microbiology Microbiology 03/23/19 Gram Stain - Final, Complete 03/23/19 Sputum Culture - Final, Complete 03/23/19 Blood Culture - Preliminary, Resulted No Growth after 48 hours. All Specime... 03/23/19 Blood Culture - Preliminary, Resulted No Growth after 48 hours. All Specime... Discharge Medications Scheduled Levofloxacin (Levaquin) 750 Mg Tablet, 1 TAB PO DAILY Norelgestromin/Ethin.estradiol (Xulane Patch) 1 Each Patch.tdwk, 1 PATCH TD ASDIRECTED, (Reported) APPLY WEEKLY FOR 3 WEEKS THEN 1 WEEK OFF, REMOVED PATCH ON 03/19/19 FOR WEEK OFF Ranitidine HCl (Ranitidine HCl) 75 Mg Tablet, 75 MG PO DAILY, (Reported) Sertraline HCl (Sertraline HCl) 100 Mg Tablet, 100 MG PO DAILY, (Reported) Topiramate (Topiramate) 100 Mg Tablet, 100 MG PO QHS, (Reported) Allergies Coded Allergies: No Known Drug Allergies (Verified Allergy, Unknown, 03/23/19) CHERRY FINK MD Mar 25, 2019 20:49
[2019-03-28 00:08] LABS: MYCOPLASMA PNEUMONIAE IgG <100 U/mL (0-99); MYCOPLASMA PNEUMONIAE IgM <770 U/mL (0-769)
== END 2019-03-25 14:30 | disposition home or self-care (01) | DRG 139 ==
LOC: M ED 09:45 → M ED INP 13:17 → M MSPAV 14:34
PROVIDERS: ADMIT Internal Medicine; ATTEND Internal Medicine
DX: J18.9 Pneumonia, unspecified organism (principal); I10 Essential (primary) hypertension; G43.909 Migraine, unspecified, not intractable, without status migrainosus; F41.9 Anxiety disorder, unspecified; R07.89 Other chest pain; E87.6 Hypokalemia; E66.9 Obesity, unspecified; K21.9 Gastro-esophageal reflux disease without esophagitis

== ENCOUNTER → 2019-04-16 | Outpatient (CLI) | payer OTHER, SELFPAY ==
[~2019-04-16] MED LIST changes: +IBUP80TA PO; +LEVA750T7 PO; -MAALOX 30 ML SUSP *UDC PO PRN; -MOM 30ML SUSPENSION UDC PO PRN; +RANI75TA39 PO; +SERT-138 PO; -SERTRALINE 100 MG TAB PO SCH; +TOPI100T9 PO; +XULA1DIS TD
== END ==
LOC: M LAB 10:51
PROVIDERS: ATTEND Physician Assistant Medical
DX: E55.9 Vitamin D deficiency, unspecified (principal)

== ENCOUNTER → 2019-04-16 | Outpatient (CLI) | payer OTHER, SELFPAY ==
[2019-04-16 12:12] LABS: CHOLESTEROL RISK RATIO 2.984 (<5)
[2019-04-16 12:35] LABS: HEMOGLOBIN A1c 4.6 %
--- NOTE | 2019-04-17 02:06 | REP ---
Clinical: Follow up pneumonia . Comparison: 03/23/2019 . Technique: PA and lateral. Findings: The mediastinum and cardiac silhouette are normal. The lung fraser are clear and without acute consolidation, effusion, or pneumothorax. Previous right lower lobe infiltrate has resolved. The skeletal structures are intact and normal. Impression: 1. No acute cardiopulmonary process. 2. Previous right lower lobe infiltrate resolved. Electronically Signed by Andrew Montoya MD 04/17/2019 01:57 A
== END ==
LOC: M LAB 10:48
PROVIDERS: ATTEND Internal Medicine
DX: Z00.00 Encounter for general adult medical examination without abnormal findings (principal)

== ENCOUNTER → 2019-10-14 | Outpatient (REF) | payer OTHER, SELFPAY | LOC: M SFHCWAGY 17:22 | PROVIDERS: ATTEND Specialist | DX: Z12.4 Encounter for screening for malignant neoplasm of cervix (principal) ==

== ENCOUNTER → 2020-04-07 | Outpatient (CLI) | payer OTHER, MEDICAID ==
--- NOTE | 2020-04-08 04:47 | REPPI ---
INDICATION: RIGHT FOOT PAIN COMPARISON: None. TECHNIQUE: AP, lateral, bilateral oblique views right foot. FINDINGS: The osseous structures and joint spaces are intact and normal. There is no evidence for acute fracture or dislocation. Surrounding soft tissues are unremarkable. No subcutaneous emphysema or radiodense foreign body. IMPRESSION: Normal age-appropriate appearance of the right foot. No acute fracture or dislocation. <Electronically signed by Andrew Montoya > 04/08/20 0445
== END ==
LOC: M PLAIMG 15:28
DX: M79.671 Pain in right foot (principal)

== ENCOUNTER 2020-12-06 10:48 | Emergency (ER) | payer MEDICAID, OTHER, SELFPAY ==
[~2020-12-06] VITALS: Ht 170.2 cm; Wt 110.8 kg
[2020-12-06 10:48] VITALS: BP 154/96
== END 2020-12-06 15:00 | disposition left against medical advice (07) ==
LOC: M ED 10:48
DX: Z53.21 Procedure and treatment not carried out due to patient leaving prior to being seen by health care provider (principal)

== ENCOUNTER → 2021-01-04 | Outpatient (CLI) | payer OTHER ==
[2021-01-04 10:40] LABS: CHOLESTEROL RISK RATIO 3.944 (<5)
== END ==
LOC: M LAB 09:21
PROVIDERS: ATTEND Psychiatry & Neurology Psychiatry
DX: F33.2 Major depressive disorder, recurrent severe without psychotic features (principal); F41.0 Panic disorder [episodic paroxysmal anxiety]

== ENCOUNTER → 2021-09-14 | Outpatient (CLI) | payer OTHER ==
[2021-09-14 10:17] LABS: BASO # 0.1 10^3/uL (0.0-0.2); BASO % 0.5 % (0.0-1.0); HEMATOCRIT 41.1 % (36.0-47.0); HEMOGLOBIN 14.4 g/dl (12.0-15.5); LYMPH # 1.7 10^3/uL (1.5-5.0); LYMPH % 18.2 % (24.0-44.0); MEAN CORPUSCULAR HEMOGLOBIN 32.1 pg (27.0-33.0); MEAN CORPUSCULAR VOLUME 91.5 fl (80.0-96.0); MONO # 0.6 10^3/uL (0.0-0.8); MONO % 6.4 % (2.0-8.0); NEUTROPHILS % 74.2 % (36.0-66.0); PLATELET COUNT, AUTOMATED 224 10^3/uL (150-450); RED BLOOD COUNT 4.49 10^6/uL (4.00-5.40); WHITE BLOOD COUNT 9.4 10^3/uL (4.0-10.0)
[2021-09-14 10:48] LABS: ALBUMIN 3.7 GM/DL (3.2-5.2); ALT/SGPT 40 U/L (12-78); BILIRUBIN,DIRECT 0.2 MG/DL (0.0-0.2); BILIRUBIN,TOTAL 0.5 MG/DL (0.2-1.0); BLOOD UREA NITROGEN 14 MG/DL (7-18); CALCIUM LEVEL 9.3 MG/DL (8.5-10.1); CARBON DIOXIDE LEVEL 20 MEQ/L (21-32); CHLORIDE LEVEL 113 MEQ/L (98-107); CHOLESTEROL LEVEL 207 MG/DL (< 200); CREATININE FOR GFR 0.85 MG/DL (0.55-1.30); FREE THYROXINE INDEX 2.2 % (1.3-4.8); GLOMERULAR FILTRATION RATE > 60.0 (>60); GLUCOSE, FASTING 94 MG/DL (70-100); POTASSIUM SERUM 3.6 MEQ/L (3.5-5.1); SODIUM LEVEL 141 MEQ/L (136-145); T UPTAKE 33 % (30-39); THYROXINE (T4) 6.8 UG/DL (4.5-12.0); TOTAL PROTEIN 7.3 GM/DL (6.4-8.2)
== END ==
LOC: M LAB 09:46
PROVIDERS: ATTEND Nurse Practitioner Psychiatric/Mental Health
DX: F32.9 Major depressive disorder, single episode, unspecified (principal)

== ENCOUNTER 2021-11-29 05:05 | Inpatient (IN) | payer OTHER ==
[~2021-11-29] VITALS: Ht 170.2 cm; Wt 122.7 kg
[2021-11-29 06:18] LABS: HEMATOCRIT 44.3 % (36.0-47.0); MEAN CORPUSCULAR HEMOGLOBIN 31.4 pg (27.0-33.0); MEAN CORPUSCULAR HGB CONC 33.9 g/dl (32.0-36.5); MEAN CORPUSCULAR VOLUME 92.9 fl (80.0-96.0); PLATELET COUNT, AUTOMATED 301 10^3/uL (150-450); RED BLOOD COUNT 4.77 10^6/uL (4.00-5.40)
[2021-11-29 06:36] LABS: RSV AMPLIFICATION NEGATIVE (NEGATIVE)
[2021-11-29 06:43] LABS: ACETAMINOPHEN LEVEL < 2.0 UG/ML (10.0-30.0); ALT/SGPT 44 U/L (12-78); BILIRUBIN,DIRECT < 0.1 MG/DL (0.0-0.2); BILIRUBIN,TOTAL 0.3 MG/DL (0.2-1.0); BLOOD UREA NITROGEN 11 MG/DL (7-18); CALCIUM LEVEL 8.9 MG/DL (8.5-10.1); CARBON DIOXIDE LEVEL 19 MEQ/L (21-32); CHLORIDE LEVEL 109 MEQ/L (98-107); CREATININE FOR GFR 0.81 MG/DL (0.55-1.30); ETHYL ALCOHOL (ETHANOL) 0.165 % (0.000-0.010); GLOMERULAR FILTRATION RATE > 60.0 (>60); GLUCOSE, FASTING 110 MG/DL (70-100); POTASSIUM SERUM 3.8 MEQ/L (3.5-5.1); SALICYLATE LEVEL < 1.7 MG/DL (5.0-30.0); SODIUM LEVEL 139 MEQ/L (136-145); TOTAL PROTEIN 7.7 GM/DL (6.4-8.2)
[2021-11-29 07:30] LABS: HCG, SERUM QUALITATIVE NEGATIVE (NEGATIVE)
[2021-11-29] MEDS ORDERED: ACET1TAB55 PO (08:27)
[2021-11-29] MEDS ORDERED: FIOR1CAP PO (08:27)
[2021-11-29] MEDS ORDERED: TUMS500C PO (08:27)
[2021-11-29] MEDS ORDERED: VENL150C43 PO (08:27)
[2021-11-29] MEDS ORDERED: BUSP10TA PO (08:27)
[2021-11-29] MEDS ORDERED: HYDR-3363 PO (08:27)
[2021-11-29] MEDS ORDERED: CLON-412 PO (08:27)
[2021-11-29] MEDS ORDERED: DEPO150I12 IM (08:27)
[2021-11-29] MEDS ORDERED: ARIP10TA32 PO (08:27)
[2021-11-29] MEDS ORDERED: HOME MED LIST COMPLETE! XX SCH (08:30)
[2021-11-29 10:53] LABS: AMPHETAMINES LEVEL URINE NEGATIVE (NEGATIVE); BARBITURATES URINE NEGATIVE (NEGATIVE); BENZODIAZEPINES URINE NEGATIVE (NEGATIVE); CANNABINOIDS URINE NEGATIVE (NEGATIVE); COCAINE METABOLITE URINE NEGATIVE (NEGATIVE); METHADONE URINE NEGATIVE (NEGATIVE); OPIATES URINE NEGATIVE (NEGATIVE); PHENCYCLIDINE URINE NEGATIVE (NEGATIVE)
[2021-11-29] MEDS ORDERED: cloNIDine 0.1MG TABLET PO PRN (17:15)
[2021-11-29] MEDS: busPIRone 10 MG TAB PO SCH (20:01)
[2021-11-29] MEDS: ARIPiprazole 10 MG TAB PO SCH (20:01)
[2021-11-29] MEDS: TOPIRAMATE (TopAMAX) 100 MG TAB PO SCH (20:02)
[2021-11-30] MEDS ORDERED: VENLAFAXINE 37.5 MG TAB PO SCH (09:00)
[2021-11-30] MEDS: busPIRone 10 MG TAB PO SCH ×3 (10:22→20:58)
[2021-11-30] MEDS: VENLAFAXINE **XR** 75MG CAPSULE PO SCH (10:22)
[2021-11-30] MEDS: TOPIRAMATE (TopAMAX) 100 MG TAB PO SCH (20:58)
[2021-11-30] MEDS: ARIPiprazole 10 MG TAB PO SCH (20:58)
[2021-12-01] MEDS: VENLAFAXINE **XR** 75MG CAPSULE PO SCH (09:00)
[2021-12-01] MEDS: busPIRone 10 MG TAB PO SCH ×4 (09:00→20:48)
[2021-12-01 12:42] LABS: RSV AMPLIFICATION NEGATIVE (NEGATIVE)
[2021-12-01] MEDS ORDERED: ACETAMINOPHEN TAB 650MG DOSE (2X325MG) PO PRN (16:25)
[2021-12-01] MEDS ORDERED: cloNIDine 0.1MG TABLET PO PRN (16:25)
[2021-12-01] MEDS ORDERED: MAALOX 30 ML SUSP *UDC PO PRN (16:25)
[2021-12-01] MEDS ORDERED: traZODone 50 MG TAB PO PRN (16:25)
[2021-12-01] MEDS ORDERED: MOM 30ML SUSPENSION UDC PO PRN (16:25)
[2021-12-01 20:00] VITALS: BP 139/91
[2021-12-01] MEDS: ARIPiprazole 10 MG TAB PO SCH (20:48)
[2021-12-01] MEDS: TOPIRAMATE (TopAMAX) 100 MG TAB PO SCH (20:48)
[2021-12-02 06:40] VITALS: BP 132/72
[2021-12-02] MEDS: VENLAFAXINE **XR** 37.5 MG CAPSULE PO SCH (08:09)
[2021-12-02] MEDS: VENLAFAXINE **XR** 75MG CAPSULE PO SCH (08:09)
[2021-12-02] MEDS: busPIRone 10 MG TAB PO SCH ×3 (08:10→20:35)
[2021-12-02] MEDS: NICOTINE 21MG/24HR 1 EA TRANSDERMAL TD PRN (09:00)
[2021-12-02] MEDS ORDERED: VENLAFAXINE **XR** 75MG CAPSULE PO SCH (09:00)
[2021-12-02] MEDS ORDERED: zolPIDEM TARTRATE 5 MG TAB PO PRN (11:50)
[2021-12-02] MEDS ORDERED: cloNIDine 0.1MG TABLET PO PRN (11:50)
[2021-12-02 15:15] VITALS: BP 132/72
[2021-12-02 18:40] VITALS: BP 135/70
[2021-12-02] MEDS: ARIPiprazole 10 MG TAB PO SCH (20:36)
[2021-12-02] MEDS: TOPIRAMATE (TopAMAX) 100 MG TAB PO SCH (20:36)
[2021-12-02] MEDS: zolPIDEM TARTRATE 5 MG TAB PO PRN (21:23)
[2021-12-03 06:26] VITALS: BP 119/76
[2021-12-03] MEDS: VENLAFAXINE **XR** 75MG CAPSULE PO SCH (09:16)
[2021-12-03] MEDS: busPIRone 10 MG TAB PO SCH ×3 (09:16→20:16)
[2021-12-03] MEDS: VENLAFAXINE **XR** 37.5 MG CAPSULE PO SCH (09:16)
[2021-12-03] MEDS: NICOTINE 21MG/24HR 1 EA TRANSDERMAL TD PRN (09:16)
[2021-12-03 17:40] VITALS: BP 137/72
[2021-12-03] MEDS: zolPIDEM TARTRATE 5 MG TAB PO PRN (20:16)
[2021-12-03] MEDS: ARIPiprazole 10 MG TAB PO SCH (20:16)
[2021-12-03] MEDS: TOPIRAMATE (TopAMAX) 100 MG TAB PO SCH (20:17)
[2021-12-04 08:03] VITALS: BP 137/83
[2021-12-04] MEDS: busPIRone 10 MG TAB PO SCH (08:14)
[2021-12-04] MEDS: VENLAFAXINE **XR** 75MG CAPSULE PO SCH (08:14)
[2021-12-04] MEDS: VENLAFAXINE **XR** 37.5 MG CAPSULE PO SCH (08:15)
[2021-12-04] MEDS ORDERED: VENL75CA47 PO (11:45)
[2021-12-04] MEDS ORDERED: VENL37.598 PO (11:45)
[2021-12-04] MEDS ORDERED: NICO21PAT TD (11:45)
[2021-12-04] MEDS ORDERED: AMBI5TAB PO (11:45)
== END 2021-12-04 15:10 | disposition home or self-care (01) | DRG 751 ==
LOC: M ED 05:05 → M PSY 12-01 05:06 → EEVIPCON 12-01 05:06
PROVIDERS: ADMIT Student in an Organized Health Care Education/Training Program; ATTEND Student in an Organized Health Care Education/Training Program
DX: F33.2 Major depressive disorder, recurrent severe without psychotic features (principal); Z68.41 Body mass index [BMI] 40.0-44.9, adult; R45.851 Suicidal ideations; E66.01 Morbid (severe) obesity due to excess calories; F41.8 Other specified anxiety disorders; F60.7 Dependent personality disorder; F60.3 Borderline personality disorder; F40.10 Social phobia, unspecified; Z81.0 Family history of intellectual disabilities; Z91.410 Personal history of adult physical and sexual abuse; J30.2 Other seasonal allergic rhinitis; G43.909 Migraine, unspecified, not intractable, without status migrainosus; F10.10 Alcohol abuse, uncomplicated; M79.10 Myalgia, unspecified site; M47.816 Spondylosis without myelopathy or radiculopathy, lumbar region; F17.200 Nicotine dependence, unspecified, uncomplicated; Z79.899 Other long term (current) drug therapy; Z88.1 Allergy status to other antibiotic agents; Z91.52 Personal history of nonsuicidal self-harm

== ENCOUNTER → 2022-01-26 | Outpatient (REF) | payer OTHER ==
[~2022-01-26] MED LIST changes: +ACET1TAB55 PO; +AMBI5TAB PO; +ARIP10TA32 PO; +BUSP10TA PO; +CLON-412 PO; +DEPO150I12 IM; +FIOR1CAP PO; +HYDR-3363 PO; +NICO21PAT TD; +TUMS500C PO; +VENL150C43 PO; +VENL37.598 PO; +VENL75CA47 PO
[2022-01-26 19:05] LABS: APPEARANCE, URINE MANUAL CLEAR (CLEAR); COLOR, URINE MANUAL YELLOW (YELLOW)
[2022-01-26 19:07] LABS: BILIRUBIN, URINE MANUAL NEGATIVE (NEGATIVE); BLOOD URINE MANUAL NEGATIVE (NEGATIVE); GLUCOSE, URINE (UA) MANUAL NEGATIVE (NEGATIVE); KETONE, URINE MANUAL NEGATIVE (NEGATIVE); LEUKOCYTE ESTERASE, URINE MAN POSITIVE (NEGATIVE); NITRITE, URINE MANUAL NEGATIVE (NEGATIVE); PROTEIN, URINE MANUAL NEGATIVE (NEGATIVE); UROBILINOGEN, URINE MANUAL NORMAL (NORMAL)
[2022-01-26 19:16] LABS: BACTERIA, URINE SMALL AMOUNT; HYALINE CAST, URINE NONE SEEN /lpf (0-1); MUCUS, URINE SMALL AMOUNT (NEGATIVE); RBC, URINE 0-1 /hpf (0-3); SQUAMOUS EPITHELIAL CELL URINE MOD AMOUNT /hpf (SMALL AMT)
== END ==
LOC: M LAB REF 16:54
PROVIDERS: ATTEND Physician Assistant
DX: N39.0 Urinary tract infection, site not specified (principal)

== ENCOUNTER → 2022-06-08 | Outpatient (REF) | payer OTHER | LOC: M LAB REF 16:39 | PROVIDERS: ATTEND Physician Assistant | DX: J02.9 Acute pharyngitis, unspecified (principal) ==

== ENCOUNTER → 2022-07-14 | Outpatient (CLI) | payer OTHER ==
[2022-07-14 17:12] LABS: ALBUMIN 3.4 G/DL (3.2-5.2); ALKALINE PHOSPHATASE 60 U/L (46-116); ALT/SGPT 75 U/L (7.0-40); AST/SGOT 32 U/L (<34); BILIRUBIN,TOTAL 0.5 MG/DL (0.3-1.2); BLOOD UREA NITROGEN 16 MG/DL (9-23); CALCIUM LEVEL 8.1 MG/DL (8.5-10.1); CARBON DIOXIDE LEVEL 24 MMOL/L (20-31); CHLORIDE LEVEL 110 MMOL/L (98-107); CHOLESTEROL LEVEL 193 MG/DL (<200); CHOLESTEROL RISK RATIO 3.74 (<5); CREATININE FOR GFR 0.77 MG/DL (0.55-1.30); GLOMERULAR FILTRATION RATE > 60.0 (>60); GLUCOSE, FASTING 109 MG/DL (60-100); HDL CHOLESTEROL 51.5 MG/DL (>40); LDL CHOLESTEROL 88.3 MG/DL (<100); NON-HDL-C 141.5 MG/DL; POTASSIUM SERUM 3.8 MMOL/L (3.5-5.1); SODIUM LEVEL 141 MMOL/L (136-145); TOTAL PROTEIN 6.7 G/DL (5.7-8.2); TRIGLYCERIDES LEVEL 266 MG/DL (<150)
[2022-07-14 17:14] LABS: FREE T4 0.81 NG/DL (0.89-1.76); THYROID STIMULATING HORMONE 1.131 uIU/ML (0.55-4.78)
[2022-07-14 17:20] LABS: HEMOGLOBIN A1c 4.7 % (4.0-6.0)
== END ==
LOC: M LAB 16:23
PROVIDERS: ATTEND Student in an Organized Health Care Education/Training Program
DX: E66.01 Morbid (severe) obesity due to excess calories (principal)

== ENCOUNTER → 2022-07-17 | Outpatient (CLI) | payer OTHER | LOC: M EKG 11:55 | PROVIDERS: ATTEND Nurse Practitioner Psychiatric/Mental Health | DX: F32.9 Major depressive disorder, single episode, unspecified (principal); F41.9 Anxiety disorder, unspecified; G47.00 Insomnia, unspecified; F10.10 Alcohol abuse, uncomplicated ==

== ENCOUNTER → 2022-11-27 | Outpatient (CLI) | payer OTHER ==
[2022-11-27 11:02] LABS: BASO # 0.1 10^3/uL (0.0-0.2); BASO % 0.5 % (0.0-1.0); EOS % 0.2 % (0.0-3.0); HEMATOCRIT 43.4 % (36.0-47.0); HEMOGLOBIN 14.3 g/dl (12.0-15.5); LYMPH # 1.5 10^3/uL (1.5-5.0); LYMPH % 15.9 % (24.0-44.0); MEAN CORPUSCULAR HGB CONC 32.9 g/dl (32.0-36.5); MEAN CORPUSCULAR VOLUME 97.1 fl (80.0-96.0); MONO # 0.6 10^3/uL (0.0-0.8); MONO % 6.1 % (2.0-8.0); NEUTROPHILS # 7.2 10^3/uL (1.5-8.5); NEUTROPHILS % 76.6 % (36.0-66.0); PLATELET COUNT, AUTOMATED 241 10^3/uL (150-450); RED BLOOD COUNT 4.47 10^6/uL (4.00-5.40); WHITE BLOOD COUNT 9.4 10^3/uL (4.0-10.0)
[2022-11-27 11:28] LABS: ALBUMIN 3.6 G/DL (3.2-5.2); ALKALINE PHOSPHATASE 69 U/L (46-116); ALT/SGPT 65 U/L (7.0-40); AST/SGOT 28 U/L (<34); BILIRUBIN,TOTAL 0.6 MG/DL (0.3-1.2); BLOOD UREA NITROGEN 15 MG/DL (9-23); CALCIUM LEVEL 9.1 MG/DL (8.5-10.1); CARBON DIOXIDE LEVEL 24 MMOL/L (20-31); CHLORIDE LEVEL 107 MMOL/L (98-107); CREATININE FOR GFR 0.78 MG/DL (0.55-1.30); GLOMERULAR FILTRATION RATE > 60.0 (>60); GLUCOSE, FASTING 91 MG/DL (60-100); POTASSIUM SERUM 4.5 MMOL/L (3.5-5.1); SODIUM LEVEL 139 MMOL/L (136-145); TOTAL PROTEIN 6.8 G/DL (5.7-8.2)
== END ==
LOC: M LAB 10:20
PROVIDERS: ATTEND Student in an Organized Health Care Education/Training Program
DX: R10.11 Right upper quadrant pain (principal)

== ENCOUNTER → 2022-12-07 | Outpatient (CLI) | payer OTHER | LOC: M PLAIMG 13:32 | PROVIDERS: ATTEND Physician Assistant Surgical | DX: S93.401D Sprain of unspecified ligament of right ankle, subsequent encounter (principal) ==

== ENCOUNTER → 2023-03-01 | Outpatient (REF) | payer OTHER | LOC: M SFHCLERA 16:51 | PROVIDERS: ATTEND Physician Assistant | DX: J22 Unspecified acute lower respiratory infection (principal) ==

== ENCOUNTER → 2023-05-09 | Outpatient (REF) | payer OTHER ==
[2023-05-09 18:33] LABS: RSV AMPLIFICATION NEGATIVE (NEGATIVE)
== END ==
LOC: M SFHCLERA 16:28
PROVIDERS: ATTEND Physician Assistant
DX: J02.9 Acute pharyngitis, unspecified (principal)

== ENCOUNTER → 2023-08-21 | Outpatient (CLI) | payer OTHER ==
[2023-08-21 13:36] LABS: BASO # 0.1 10^3/uL (0.0-0.2); BASO % 0.6 % (0.0-1.0); EOS % 0.5 % (0.0-3.0); HEMATOCRIT 41.2 % (36.0-47.0); LYMPH # 1.4 10^3/uL (1.5-5.0); LYMPH % 16.5 % (24.0-44.0); MEAN CORPUSCULAR HEMOGLOBIN 32.6 pg (27.0-33.0); MONO # 0.4 10^3/uL (0.0-0.8); MONO % 4.7 % (2.0-8.0); NEUTROPHILS # 6.4 10^3/uL (1.5-8.5); NEUTROPHILS % 77.3 % (36.0-66.0); PLATELET COUNT, AUTOMATED 259 10^3/uL (150-450); RED BLOOD COUNT 4.29 10^6/uL (4.00-5.40); WHITE BLOOD COUNT 8.2 10^3/uL (4.0-10.0)
[2023-08-21 14:03] LABS: ALBUMIN 3.5 G/DL (3.2-5.2); ALKALINE PHOSPHATASE 85 U/L (46-116); ALT/SGPT 85 U/L (7.0-40); AST/SGOT 33 U/L (<34); BILIRUBIN,TOTAL 0.7 MG/DL (0.3-1.2); BLOOD UREA NITROGEN 13 MG/DL (9-23); CALCIUM LEVEL 9.1 MG/DL (8.5-10.1); CARBON DIOXIDE LEVEL 28 MMOL/L (20-31); CHLORIDE LEVEL 106 MMOL/L (98-107); CREATININE FOR GFR 0.72 MG/DL (0.55-1.30); GLOMERULAR FILTRATION RATE > 60.0 (>60); GLUCOSE, FASTING 102 MG/DL (60-100); SODIUM LEVEL 140 MMOL/L (136-145); TOTAL PROTEIN 6.8 G/DL (5.7-8.2)
[2023-08-21 14:05] LABS: HEPATITIS B SURFACE ANTIBODY NEGATIVE (POSITIVE)
[2023-08-21 14:16] LABS: HEPATITIS B SURFACE ANTIGEN NEGATIVE (NEGATIVE)
[2023-08-21 14:37] LABS: HEPATITIS C VIRUS ABY INDEX < 0.02 INDEX (<0.8)
== END ==
LOC: M LAB 12:51
PROVIDERS: ATTEND Internal Medicine Rheumatology
DX: M19.90 Unspecified osteoarthritis, unspecified site (principal)

== ENCOUNTER → 2023-08-21 | Outpatient (CLI) | payer OTHER ==
[2023-08-21 13:36] LABS: BASO # 0.1 10^3/uL (0.0-0.2); BASO % 0.6 % (0.0-1.0); HEMATOCRIT 41.7 % (36.0-47.0); HEMOGLOBIN 14.1 g/dl (12.0-15.5); LYMPH # 1.4 10^3/uL (1.5-5.0); LYMPH % 16.6 % (24.0-44.0); MEAN CORPUSCULAR HEMOGLOBIN 32.5 pg (27.0-33.0); MEAN CORPUSCULAR HGB CONC 33.8 g/dl (32.0-36.5); MEAN CORPUSCULAR VOLUME 96.1 fl (80.0-96.0); MONO # 0.5 10^3/uL (0.0-0.8); MONO % 5.3 % (2.0-8.0); NEUTROPHILS # 6.5 10^3/uL (1.5-8.5); NEUTROPHILS % 77.1 % (36.0-66.0); PLATELET COUNT, AUTOMATED 248 10^3/uL (150-450); RED BLOOD COUNT 4.34 10^6/uL (4.00-5.40); WHITE BLOOD COUNT 8.4 10^3/uL (4.0-10.0)
[2023-08-21 13:45] LABS: HEMOGLOBIN A1c 4.9 % (4.0-6.0)
[2023-08-21 14:07] LABS: ALBUMIN 3.6 G/DL (3.2-5.2); ALKALINE PHOSPHATASE 83 U/L (46-116); ALT/SGPT 85 U/L (7.0-40); AST/SGOT 35 U/L (<34); BILIRUBIN,TOTAL 0.7 MG/DL (0.3-1.2); BLOOD UREA NITROGEN 12 MG/DL (9-23); CALCIUM LEVEL 9.1 MG/DL (8.5-10.1); CARBON DIOXIDE LEVEL 28 MMOL/L (20-31); CHLORIDE LEVEL 103 MMOL/L (98-107); CHOLESTEROL LEVEL 199 MG/DL (<200); CHOLESTEROL RISK RATIO 3.54 (<5); CREATININE FOR GFR 0.72 MG/DL (0.55-1.30); FREE THYROXINE INDEX 2.6 % (1.3-4.8); GLOMERULAR FILTRATION RATE > 60.0 (>60); GLUCOSE, FASTING 104 MG/DL (60-100); HDL CHOLESTEROL 56.2 MG/DL (>40); LDL CHOLESTEROL 108.8 MG/DL (<100); NON-HDL-C 142.8 MG/DL; POTASSIUM SERUM 3.9 MMOL/L (3.5-5.1); SODIUM LEVEL 138 MMOL/L (136-145); T UPTAKE 37.3 % (22.5-37.0); THYROID STIMULATING HORMONE 1.314 uIU/ML (0.55-4.78); TOTAL 25(OH) VITAMIN D 34.9 NG/ML (20.0-100.0); TOTAL PROTEIN 6.8 G/DL (5.7-8.2); TRIGLYCERIDES LEVEL 170 MG/DL (<150)
== END ==
LOC: M LAB 12:48
PROVIDERS: ATTEND Nurse Practitioner Psychiatric/Mental Health
DX: F41.9 Anxiety disorder, unspecified (principal); F32.9 Major depressive disorder, single episode, unspecified; F10.10 Alcohol abuse, uncomplicated; G47.00 Insomnia, unspecified

== ENCOUNTER → 2023-12-10 | Outpatient (CLI) | payer OTHER ==
[2023-12-10 15:05] LABS: HEMATOCRIT 36.6 % (36.0-47.0)
[2023-12-10 15:12] LABS: BASO % 0.3 % (0.0-1.0); EOS % 0.1 % (0.0-3.0); HEMATOCRIT 37.4 % (36.0-47.0); LYMPH # 1.8 10^3/uL (1.5-5.0); LYMPH % 17.4 % (24.0-44.0); MEAN CORPUSCULAR HEMOGLOBIN 31.9 pg (27.0-33.0); MEAN CORPUSCULAR HGB CONC 32.1 g/dl (32.0-36.5); MEAN CORPUSCULAR VOLUME 99.5 fl (80.0-96.0); MONO # 0.8 10^3/uL (0.0-0.8); MONO % 7.5 % (2.0-8.0); NEUTROPHILS # 7.5 10^3/uL (1.5-8.5); NEUTROPHILS % 73.8 % (36.0-66.0); PLATELET COUNT, AUTOMATED 270 10^3/uL (150-450); RED BLOOD COUNT 3.76 10^6/uL (4.00-5.40); WHITE BLOOD COUNT 10.1 10^3/uL (4.0-10.0)
[2023-12-10 15:34] LABS: THYROID STIMULATING HORMONE 1.997 uIU/ML (0.55-4.78)
[2023-12-10 15:35] LABS: VITAMIN B12 LEVEL 453 PG/ML (211-911)
[2023-12-10 15:36] LABS: FREE T4 1.16 NG/DL (0.89-1.76)
[2023-12-10 15:37] LABS: ALBUMIN 3.4 G/DL (3.2-5.2); ALKALINE PHOSPHATASE 79 U/L (46-116); ALT/SGPT 69 U/L (7.0-40); AST/SGOT 25 U/L (<34); BILIRUBIN,TOTAL 0.5 MG/DL (0.3-1.2); BLOOD UREA NITROGEN 15 MG/DL (9-23); CALCIUM LEVEL 9.2 MG/DL (8.5-10.1); CARBON DIOXIDE LEVEL 29 MMOL/L (20-31); CHLORIDE LEVEL 107 MMOL/L (98-107); CHOLESTEROL LEVEL 188 MG/DL (<200); CHOLESTEROL RISK RATIO 4.07 (<5); CREATININE FOR GFR 0.67 MG/DL (0.55-1.30); GLOMERULAR FILTRATION RATE > 60.0 (>60); GLUCOSE, FASTING 81 MG/DL (60-100); HDL CHOLESTEROL 46.1 MG/DL (>40); LDL CHOLESTEROL 115.1 MG/DL (<100); NON-HDL-C 141.9 MG/DL; POTASSIUM SERUM 4.4 MMOL/L (3.5-5.1); SODIUM LEVEL 139 MMOL/L (136-145); TOTAL PROTEIN 6.6 G/DL (5.7-8.2); TRIGLYCERIDES LEVEL 134 MG/DL (<150)
[2023-12-10 16:40] LABS: HEMOGLOBIN A1c 4.9 % (4.0-6.0)
== END ==
LOC: M PLAIMG 11:18
PROVIDERS: ATTEND Student in an Organized Health Care Education/Training Program
DX: Z76.89 Persons encountering health services in other specified circumstances (principal)

== ENCOUNTER → 2023-12-10 | Outpatient (REF) | payer OTHER | LOC: M SFHCPLAZ 11:36 | PROVIDERS: ATTEND Student in an Organized Health Care Education/Training Program | DX: Z76.89 Persons encountering health services in other specified circumstances (principal) ==

== ENCOUNTER → 2024-02-13 | Outpatient (CLI) | payer OTHER ==
[~2024-02-13] MED LIST changes: -ARIP10TA32 PO; +ARIP10TA63 PO
== END ==
LOC: M PLALAB 13:03
PROVIDERS: ATTEND Physician Assistant Medical
DX: M25.512 Pain in left shoulder (principal)

== ENCOUNTER → 2024-02-18 | Outpatient (CLI) | payer OTHER ==
[~2024-02-18] MED LIST changes: +ISOVUE-370 76% 100ML VIAL ONE
== END ==
LOC: M PLAIMG 09:36
PROVIDERS: ATTEND Physician Assistant Medical
DX: K76.89 Other specified diseases of liver (principal); R07.9 Chest pain, unspecified

== ENCOUNTER → 2024-02-26 | Outpatient (REF) | payer OTHER ==
[~2024-02-26] MED LIST changes: -ISOVUE-370 76% 100ML VIAL ONE
== END ==
LOC: M SFHCPLAZ 17:02
PROVIDERS: ATTEND Physician Assistant Medical
DX: R05.1 Acute cough (principal)

== ENCOUNTER 2024-03-05 11:19 | Emergency (ER) | payer OTHER ==
[~2024-03-05] VITALS: Ht 170.2 cm; Wt 158.2 kg
[2024-03-05 12:35] LABS: BASO # 0.1 10^3/uL (0.0-0.2); BASO % 0.4 % (0.0-1.0); EOS % 0.1 % (0.0-3.0); HEMATOCRIT 36.6 % (36.0-47.0); LYMPH # 1.9 10^3/uL (1.5-5.0); LYMPH % 14.4 % (24.0-44.0); MEAN CORPUSCULAR HEMOGLOBIN 31.4 pg (27.0-33.0); MEAN CORPUSCULAR HGB CONC 32.8 g/dl (32.0-36.5); MEAN CORPUSCULAR VOLUME 95.8 fl (80.0-96.0); MONO # 0.8 10^3/uL (0.0-0.8); MONO % 6.2 % (2.0-8.0); NEUTROPHILS # 10.3 10^3/uL (1.5-8.5); NEUTROPHILS % 78.1 % (36.0-66.0); PLATELET COUNT, AUTOMATED 320 10^3/uL (150-450); RED BLOOD COUNT 3.82 10^6/uL (4.00-5.40); WHITE BLOOD COUNT 13.1 10^3/uL (4.0-10.0)
[2024-03-05 13:01] LABS: BLOOD UREA NITROGEN 20 MG/DL (9-23); CALCIUM LEVEL 9.5 MG/DL (8.5-10.1); CARBON DIOXIDE LEVEL 28 MMOL/L (20-31); CHLORIDE LEVEL 103 MMOL/L (98-107); CREATININE FOR GFR 0.66 MG/DL (0.55-1.30); GLOMERULAR FILTRATION RATE > 60.0 (>60); GLUCOSE, FASTING 104 MG/DL (60-100); POTASSIUM SERUM 4.1 MMOL/L (3.5-5.1); SODIUM LEVEL 137 MMOL/L (136-145)
[2024-03-05 13:03] LABS: THYROID STIMULATING HORMONE 1.772 uIU/ML (0.55-4.78)
[2024-03-05 13:04] LABS: HCG, SERUM QUALITATIVE NEGATIVE (NEGATIVE)
[2024-03-05] MEDS ORDERED: ISOVUE-370 76% 100ML VIAL As Ordered ONE (13:10)
[2024-03-05 14:15] VITALS: BP 130/58; TEMP 98.6; O2SAT 97
== END 2024-03-05 14:28 | disposition home or self-care (01) ==
LOC: M ED 11:19
DX: R55 Syncope and collapse (principal); S20.219A Contusion of unspecified front wall of thorax, initial encounter; Y92.9 Unspecified place or not applicable; Y93.9 Activity, unspecified; Y99.9 Unspecified external cause status; M79.7 Fibromyalgia; J45.909 Unspecified asthma, uncomplicated; F41.9 Anxiety disorder, unspecified; F32.A Depression, unspecified; F17.290 Nicotine dependence, other tobacco product, uncomplicated; F10.10 Alcohol abuse, uncomplicated; Z88.8 Allergy status to other drugs, medicaments and biological substances; Z79.1 Long term (current) use of non-steroidal anti-inflammatories (NSAID); Z79.899 Other long term (current) drug therapy
CPT/HCPCS: 36415; 70486; 71275; 80048; 84443; 84703; 85025; 93005; 93041; 94760; 99285; Q9967

== ENCOUNTER 2024-03-15 09:10 | Emergency (ER) | payer OTHER ==
[~2024-03-15] VITALS: Ht 170.2 cm; Wt 157.9 kg
[2024-03-15] MEDS ORDERED: MEDR10TA9 (09:33)
[2024-03-15] MEDS ORDERED: MELO7.5T35 (09:33)
[2024-03-15] MEDS ORDERED: CYMB1CAP4 PO (09:33)
[2024-03-15] MEDS ORDERED: LEVO50TA5 (09:33)
[2024-03-15 10:11] LABS: BASO % 0.3 % (0.0-1.0); EOS % 0.1 % (0.0-3.0); HEMATOCRIT 39.3 % (36.0-47.0); HEMOGLOBIN 12.6 g/dl (12.0-15.5); LYMPH # 1.4 10^3/uL (1.5-5.0); LYMPH % 13.9 % (24.0-44.0); MEAN CORPUSCULAR HEMOGLOBIN 30.9 pg (27.0-33.0); MEAN CORPUSCULAR HGB CONC 32.1 g/dl (32.0-36.5); MEAN CORPUSCULAR VOLUME 96.3 fl (80.0-96.0); MONO # 0.6 10^3/uL (0.0-0.8); MONO % 5.9 % (2.0-8.0); NEUTROPHILS # 8.1 10^3/uL (1.5-8.5); PLATELET COUNT, AUTOMATED 295 10^3/uL (150-450); RED BLOOD COUNT 4.08 10^6/uL (4.00-5.40); WHITE BLOOD COUNT 10.3 10^3/uL (4.0-10.0)
[2024-03-15 10:23] LABS: INR 0.94; PARTIAL THROMBOPLASTIN TIME 28.6 SECONDS (24.8-34.2); PROTHROMBIN TIME 12.9 SECONDS (12.5-14.5)
[2024-03-15] MEDS ORDERED: ISOVUE-370 76% 100ML VIAL As Ordered ONE (10:37)
[2024-03-15 10:48] LABS: LIPASE 25 U/L (12-53)
[2024-03-15 10:50] LABS: ETHYL ALCOHOL (ETHANOL) < 0.003 % (0.000-0.010)
[2024-03-15 10:51] LABS: ALBUMIN 3.6 G/DL (3.2-5.2); ALKALINE PHOSPHATASE 81 U/L (35-104); ALT/SGPT 57 U/L (7.0-40); AMYLASE 32 U/L (30-118); AST/SGOT 35 U/L (<34); BILIRUBIN,DIRECT 0.2 MG/DL (<0.4); BILIRUBIN,TOTAL 0.6 MG/DL (0.3-1.2); BLOOD UREA NITROGEN 25 MG/DL (9-23); CALCIUM LEVEL 9.7 MG/DL (8.5-10.1); CARBON DIOXIDE LEVEL 26 MMOL/L (20-31); CHLORIDE LEVEL 104 MMOL/L (98-107); CPK CREATINE PHOSPHOKINASE 174 U/L (34-145); CREATININE FOR GFR 0.69 MG/DL (0.55-1.30); GLOMERULAR FILTRATION RATE > 60.0 (>60); GLUCOSE, FASTING 113 MG/DL (60-100); MAGNESIUM LEVEL 2.1 MG/DL (1.8-2.4); MB/CK RELATIVE INDEX 1.72 (< OR =4); POTASSIUM SERUM 4.2 MMOL/L (3.5-5.1); SODIUM LEVEL 139 MMOL/L (136-145); TOTAL PROTEIN 7.5 G/DL (5.7-8.2)
[2024-03-15 10:52] LABS: FREE T4 1.13 NG/DL (0.89-1.76)
[2024-03-15] MEDS: NS (Normal Saline) 0.9% 1,000 ML IV ONE (11:08)
[2024-03-15 11:11] LABS: AMPHETAMINES LEVEL URINE NEGATIVE (NEGATIVE); BARBITURATES URINE NEGATIVE (NEGATIVE); BENZODIAZEPINES URINE NEGATIVE (NEGATIVE); CANNABINOIDS URINE NEGATIVE (NEGATIVE); COCAINE METABOLITE URINE NEGATIVE (NEGATIVE); METHADONE URINE NEGATIVE (NEGATIVE); OPIATES URINE NEGATIVE (NEGATIVE); PHENCYCLIDINE URINE NEGATIVE (NEGATIVE)
[2024-03-15 11:45] LABS: CK-MB VALUE MASS 2.1 NG/ML (<3.6)
[2024-03-15 11:46] LABS: MB/CK RELATIVE INDEX 1.4 (< OR =4)
[2024-03-15] MEDS: MORPHINE 2 MG/ML 1ML VIAL IV ONE (13:25)
[2024-03-15 14:15] VITALS: BP 121/71
[2024-03-15 14:23] VITALS: O2SAT 98
[2024-03-15 14:36] VITALS: TEMP 97.1
== END 2024-03-15 14:35 | disposition left against medical advice (07) ==
LOC: M ED 09:10
DX: R55 Syncope and collapse (principal); S22.42XA Multiple fractures of ribs, left side, initial encounter for closed fracture; Y92.019 Unspecified place in single-family (private) house as the place of occurrence of the external cause; Y93.9 Activity, unspecified; Y99.9 Unspecified external cause status; W01.0XXA Fall on same level from slipping, tripping and stumbling without subsequent striking against object, initial encounter; F41.9 Anxiety disorder, unspecified; F32.A Depression, unspecified; F17.290 Nicotine dependence, other tobacco product, uncomplicated; F10.10 Alcohol abuse, uncomplicated; Z88.1 Allergy status to other antibiotic agents; Z79.1 Long term (current) use of non-steroidal anti-inflammatories (NSAID); Z79.899 Other long term (current) drug therapy; Z53.9 Procedure and treatment not carried out, unspecified reason
CPT/HCPCS: 70450; 70486; 71045; 71260; 73090; 74177; 80047; 80048; 80076; 80307; 82077; 82150; 82550; 82553; 83605; 83690; 83735; 84439; 84443; 84484; 85025; 85610; 85730; 93005; 93041; 94760; 96374; 99285; Q9967

== ENCOUNTER 2024-04-24 09:14 | Emergency (ER) | payer OTHER ==
[~2024-04-24] VITALS: Ht 170.2 cm; Wt 161.0 kg
[~2024-04-24 09:14] MED LIST changes: +CYMB1CAP4 PO; +LEVO50TA5; +MEDR10TA9; +MELO7.5T35
[2024-04-24] MEDS ORDERED: LEVO50TA5 PO (09:25)
[2024-04-24] MEDS ORDERED: LEFL20TA15 PO (09:25)
[2024-04-24] MEDS ORDERED: LUNE2TAB28 PO (09:25)
[2024-04-24] MEDS: PERCOCET 5MG/325MG TAB PO ONE (10:20)
[2024-04-24] MEDS: ONDANSETRON 4MG ORAL DISINTEGRATING TAB PO ONE (10:21)
[2024-04-24 11:44] VITALS: BP 145/90; TEMP 98; O2SAT 97
[2024-04-24] MEDS ORDERED: MIRA3350 PO (12:04)
[2024-04-24] MEDS ORDERED: PERC5TAB12 PO (12:04)
== END 2024-04-24 12:12 | disposition home or self-care (01) ==
LOC: M ED 09:14
DX: S22.42XA Multiple fractures of ribs, left side, initial encounter for closed fracture (principal); Y92.019 Unspecified place in single-family (private) house as the place of occurrence of the external cause; Y93.9 Activity, unspecified; Y99.9 Unspecified external cause status; W01.0XXA Fall on same level from slipping, tripping and stumbling without subsequent striking against object, initial encounter; Z88.1 Allergy status to other antibiotic agents; Z79.1 Long term (current) use of non-steroidal anti-inflammatories (NSAID); Z79.899 Other long term (current) drug therapy

== ENCOUNTER → 2024-05-04 | Outpatient (CLI) | payer OTHER ==
[~2024-05-04] MED LIST changes: +LEFL20TA15 PO; +LEVO50TA5 PO; +LUNE2TAB28 PO; +MIRA3350 PO; +PERC5TAB12 PO
[2024-05-04 15:35] LABS: BASO # 0.1 10^3/uL (0.0-0.2); BASO % 0.4 % (0.0-1.0); EOS % 0.1 % (0.0-3.0); HEMATOCRIT 38.3 % (36.0-47.0); HEMOGLOBIN 11.9 g/dl (12.0-15.5); LYMPH # 1.9 10^3/uL (1.5-5.0); LYMPH % 13.4 % (24.0-44.0); MEAN CORPUSCULAR HEMOGLOBIN 29.8 pg (27.0-33.0); MEAN CORPUSCULAR HGB CONC 31.1 g/dl (32.0-36.5); MEAN CORPUSCULAR VOLUME 95.8 fl (80.0-96.0); MONO % 7.1 % (2.0-8.0); NEUTROPHILS # 10.9 10^3/uL (1.5-8.5); NEUTROPHILS % 77.9 % (36.0-66.0); PLATELET COUNT, AUTOMATED 307 10^3/uL (150-450)
[2024-05-04 16:59] LABS: IRON (FE) 43 UG/DL (50-170)
[2024-05-04 17:03] LABS: ALBUMIN 3.6 G/DL (3.2-5.2); ALKALINE PHOSPHATASE 68 U/L (35-104); ALT/SGPT 49 U/L (7.0-40); AST/SGOT 21 U/L (<34); BILIRUBIN,TOTAL 0.4 MG/DL (0.3-1.2); BLOOD UREA NITROGEN 21 MG/DL (9-23); CALCIUM LEVEL 8.6 MG/DL (8.5-10.1); CARBON DIOXIDE LEVEL 26 MMOL/L (20-31); CHLORIDE LEVEL 103 MMOL/L (98-107); CREATININE FOR GFR 0.63 MG/DL (0.55-1.30); FERRITIN 33.9 NG/ML (7.3-270.7); GLOMERULAR FILTRATION RATE > 60.0 (>60); GLUCOSE, FASTING 85 MG/DL (60-100); POTASSIUM SERUM 4.4 MMOL/L (3.5-5.1); SODIUM LEVEL 139 MMOL/L (136-145); TOTAL PROTEIN 6.9 G/DL (5.7-8.2)
== END ==
LOC: M PLALAB 12:31
PROVIDERS: ATTEND Physician Assistant Medical
DX: M25.551 Pain in right hip (principal); F51.3 Sleepwalking [somnambulism]

== ENCOUNTER 2024-05-08 11:39 | Emergency (ER) | payer OTHER ==
[~2024-05-08] VITALS: Ht 170.2 cm; Wt 160.7 kg
[2024-05-08 11:47] VITALS: BP 162/77; TEMP 97.5; O2SAT 94
== END 2024-05-08 14:09 | disposition left against medical advice (07) ==
LOC: M ED 11:39
DX: Z53.21 Procedure and treatment not carried out due to patient leaving prior to being seen by health care provider (principal)

== ENCOUNTER → 2024-05-08 | Outpatient (CLI) | payer OTHER | LOC: M SLEEP HO 11:04 | PROVIDERS: ATTEND Student in an Organized Health Care Education/Training Program | DX: G47.33 Obstructive sleep apnea (adult) (pediatric) (principal); R06.9 Unspecified abnormalities of breathing ==

== ENCOUNTER 2024-05-13 10:45 | Emergency (ER) | payer OTHER ==
[~2024-05-13] VITALS: Ht 170.2 cm; Wt 159.1 kg
[2024-05-13] MEDS: MORPHINE 4 MG/ML 1ML VIAL IV ONE (15:43)
[2024-05-13] MEDS: ONDANSETRON 4MG 2ML VIAL IV ONE (15:43)
[2024-05-13 16:18] LABS: BASO # 0.1 10^3/uL (0.0-0.2); BASO % 0.4 % (0.0-1.0); EOS % 0.2 % (0.0-3.0); HEMATOCRIT 36.2 % (36.0-47.0); HEMOGLOBIN 11.8 g/dl (12.0-15.5); LYMPH # 2.4 10^3/uL (1.5-5.0); LYMPH % 17.4 % (24.0-44.0); MEAN CORPUSCULAR HEMOGLOBIN 30.5 pg (27.0-33.0); MEAN CORPUSCULAR HGB CONC 32.6 g/dl (32.0-36.5); MEAN CORPUSCULAR VOLUME 93.5 fl (80.0-96.0); NEUTROPHILS # 10.3 10^3/uL (1.5-8.5); NEUTROPHILS % 74.1 % (36.0-66.0); PLATELET COUNT, AUTOMATED 294 10^3/uL (150-450); RED BLOOD COUNT 3.87 10^6/uL (4.00-5.40); WHITE BLOOD COUNT 13.9 10^3/uL (4.0-10.0)
[2024-05-13 16:29] LABS: BLOOD UREA NITROGEN 22 MG/DL (9-23); CALCIUM LEVEL 9.2 MG/DL (8.5-10.1); CARBON DIOXIDE LEVEL 30 MMOL/L (20-31); CHLORIDE LEVEL 103 MMOL/L (98-107); CREATININE FOR GFR 0.64 MG/DL (0.55-1.30); GLOMERULAR FILTRATION RATE > 60.0 (>60); GLUCOSE, FASTING 88 MG/DL (60-100); POTASSIUM SERUM 4.4 MMOL/L (3.5-5.1); SODIUM LEVEL 140 MMOL/L (136-145)
[2024-05-13 16:30] LABS: C REACTIVE PROTEIN QUANTITATIV 1.93 MG/DL (<1.0)
[2024-05-13 16:33] LABS: THYROID STIMULATING HORMONE 2.457 uIU/ML (0.55-4.78)
[2024-05-13 16:34] LABS: FREE T4 1.23 NG/DL (0.89-1.76)
[2024-05-13 16:41] LABS: PROCALCITONIN 0.09 ng/ml
[2024-05-13] MEDS: MORPHINE 2 MG/ML 1ML VIAL IV PRN (16:41)
[2024-05-13] MEDS: NS (Normal Saline) 0.9% 1,000 ML IV ONE (16:42)
[2024-05-13 20:01] VITALS: BP 166/65; TEMP 98.2; O2SAT 97
== END 2024-05-13 20:17 | disposition short-term general hospital (02) ==
LOC: M ED 10:45
DX: S72.041A Displaced fracture of base of neck of right femur, initial encounter for closed fracture (principal); Y92.9 Unspecified place or not applicable; Y93.9 Activity, unspecified; Y99.9 Unspecified external cause status; K21.9 Gastro-esophageal reflux disease without esophagitis; R29.6 Repeated falls; Z88.1 Allergy status to other antibiotic agents; Z79.1 Long term (current) use of non-steroidal anti-inflammatories (NSAID); Z79.899 Other long term (current) drug therapy
CPT/HCPCS: 70450; 73502; 73700; 80048; 84145; 84439; 84443; 85025; 85652; 86140; 93005; 93041; 96361; 96374; 96375; 99285; J2405

== ENCOUNTER 2024-06-13 06:55 | Emergency (ER) | payer OTHER ==
[~2024-06-13] VITALS: Ht 170.2 cm; Wt 160.0 kg
[2024-06-13] MEDS ORDERED: ECOT81TA5 PO (07:10)
[2024-06-13] MEDS ORDERED: DEBL1TAB (07:10)
[2024-06-13] MEDS ORDERED: PANT40TA29 (07:10)
[2024-06-13] MEDS ORDERED: FEXO-112 (07:10)
[2024-06-13] MEDS ORDERED: KETO10TAB PO (10:07)
[2024-06-13] MEDS: KETOROLAC 30 MG/ML 1ML VIAL IM ONE (10:20)
[2024-06-13 10:25] VITALS: BP 135/72; TEMP 97; O2SAT 96
== END 2024-06-13 10:30 | disposition home or self-care (01) ==
LOC: M ED 06:55
DX: S20.212A Contusion of left front wall of thorax, initial encounter (principal); Y92.019 Unspecified place in single-family (private) house as the place of occurrence of the external cause; Y93.9 Activity, unspecified; Y99.9 Unspecified external cause status; G47.33 Obstructive sleep apnea (adult) (pediatric); Z88.8 Allergy status to other drugs, medicaments and biological substances; Z79.1 Long term (current) use of non-steroidal anti-inflammatories (NSAID); Z79.899 Other long term (current) drug therapy
CPT/HCPCS: 71101; 96372; 99284; J1885

== ENCOUNTER 2024-07-23 05:35 | Emergency (ER) | payer OTHER ==
[~2024-07-23] VITALS: Ht 170.2 cm; Wt 157.3 kg
[~2024-07-23 05:35] MED LIST changes: -AMBI5TAB PO; +DEBL1TAB; +ECOT81TA5 PO; +FEXO-112; +KETO10TAB PO; +PANT40TA29; +TOPI-257 PO; -TOPI100T9 PO; +ZOLP-532 PO
[2024-07-23] MEDS: KETOROLAC 60MG 2ML VIAL IM ONE (07:48)
[2024-07-23] MEDS ORDERED: LIDO4CRE12 TOP (08:06)
[2024-07-23] MEDS ORDERED: LIDO1PAD (08:06)
[2024-07-23] MEDS ORDERED: KETO-204 PO (08:26)
[2024-07-23 08:31] VITALS: BP 135/70; TEMP 97.8; O2SAT 99
== END 2024-07-23 08:39 | disposition home or self-care (01) ==
LOC: M ED 05:35
DX: S22.42XA Multiple fractures of ribs, left side, initial encounter for closed fracture (principal); Y92.019 Unspecified place in single-family (private) house as the place of occurrence of the external cause; Y93.9 Activity, unspecified; Y99.9 Unspecified external cause status; J45.909 Unspecified asthma, uncomplicated; E03.9 Hypothyroidism, unspecified; Z88.1 Allergy status to other antibiotic agents; Z79.1 Long term (current) use of non-steroidal anti-inflammatories (NSAID); Z79.899 Other long term (current) drug therapy
CPT/HCPCS: 71101; 96372; 99284; J1885

== ENCOUNTER → 2024-07-25 | Outpatient (CLI) | payer OTHER ==
[~2024-07-25] MED LIST changes: +KETO-204 PO; +LIDO1PAD; +LIDO4CRE12 TOP
== END ==
LOC: M SLEEP 20:00
PROVIDERS: ATTEND Physician Assistant
DX: G47.33 Obstructive sleep apnea (adult) (pediatric) (principal)

== ENCOUNTER → 2024-07-28 | Outpatient (CLI) | payer OTHER | LOC: M WHC 09:33 | PROVIDERS: ATTEND Student in an Organized Health Care Education/Training Program | DX: M81.0 Age-related osteoporosis without current pathological fracture (principal) ==

== ENCOUNTER → 2024-07-28 | Outpatient (CLI) | payer OTHER ==
[2024-07-28 15:12] LABS: ALBUMIN 3.6 G/DL (3.2-5.2); BLOOD UREA NITROGEN 17 MG/DL (9-23); CALCIUM LEVEL 9.2 MG/DL (8.5-10.1); CARBON DIOXIDE LEVEL 31 MMOL/L (20-31); CHLORIDE LEVEL 100 MMOL/L (98-107); CREATININE FOR GFR 0.68 MG/DL (0.55-1.30); GLOMERULAR FILTRATION RATE > 90.0 (>60); GLUCOSE, FASTING 70 MG/DL (60-100); PHOSPHORUS LEVEL 4.5 MG/DL (2.5-4.9); POTASSIUM SERUM 4.6 MMOL/L (3.5-5.1); PTH INTACT 31.7 PG/ML (18.5-88.0); SODIUM LEVEL 138 MMOL/L (136-145)
[2024-07-28 15:15] LABS: TOTAL 25(OH) VITAMIN D 31.7 NG/ML (20.0-100.0)
== END ==
LOC: M PLALAB 09:35
PROVIDERS: ATTEND Student in an Organized Health Care Education/Training Program
DX: Z13.820 Encounter for screening for osteoporosis (principal)

== ENCOUNTER → 2025-02-08 | Outpatient (CLI) | payer OTHER ==
[~2025-02-08] MED LIST changes: -IBUP-1022 PO; +IBUP600T42 PO
[2025-02-08 12:27] LABS: BASO # 0.1 10^3/uL (0.0-0.2); BASO % 0.5 % (0.0-1.0); EOS # 0.0 10^3/uL (0.0-0.5); EOS % 0.1 % (0.0-3.0); LYMPH # 2.1 10^3/uL (1.5-5.0); LYMPH % 15.8 % (24.0-44.0); MONO # 1.0 10^3/uL (0.0-0.8); MONO % 7.3 % (2.0-8.0); NEUTROPHILS # 9.9 10^3/uL (1.5-8.5); NEUTROPHILS % 75.7 % (36.0-66.0); PLATELET COUNT, AUTOMATED 319 10^3/uL (150-450)
== END ==
LOC: M LAB 11:07
PROVIDERS: ATTEND Student in an Organized Health Care Education/Training Program
DX: D72.829 Elevated white blood cell count, unspecified (principal)

== ENCOUNTER → 2025-02-15 | Outpatient (REF) | LOC: M PLAIMG 13:28 | PROVIDERS: ATTEND Internal Medicine | DX: R52 Pain, unspecified (principal) ==

== ENCOUNTER → 2025-02-25 | Outpatient (CLI) | payer OTHER ==
[2025-02-25 12:35] LABS: BASO # 0.1 10^3/uL (0.0-0.2); BASO % 0.6 % (0.0-1.0); EOS # 0.0 10^3/uL (0.0-0.5); EOS % 0.0 % (0.0-3.0); LYMPH # 2.4 10^3/uL (1.5-5.0); LYMPH % 21.8 % (24.0-44.0); MONO # 0.7 10^3/uL (0.0-0.8); MONO % 6.5 % (2.0-8.0); NEUTROPHILS # 7.6 10^3/uL (1.5-8.5); NEUTROPHILS % 70.6 % (36.0-66.0); PLATELET COUNT, AUTOMATED 265 10^3/uL (150-450)
== END ==
LOC: M LAB 11:46
PROVIDERS: ATTEND Student in an Organized Health Care Education/Training Program
DX: D72.829 Elevated white blood cell count, unspecified (principal)

== ENCOUNTER → 2025-03-24 | Outpatient (CLI) | payer OTHER ==
[2025-03-24 13:16] LABS: BASO # 0.1 10^3/uL (0.0-0.2); BASO % 0.4 % (0.0-1.0); EOS # 0.0 10^3/uL (0.0-0.5); EOS % 0.0 % (0.0-3.0); LYMPH # 1.5 10^3/uL (1.5-5.0); LYMPH % 13.5 % (24.0-44.0); MONO # 0.8 10^3/uL (0.0-0.8); MONO % 6.8 % (2.0-8.0); NEUTROPHILS # 9.0 10^3/uL (1.5-8.5); NEUTROPHILS % 78.8 % (36.0-66.0); PLATELET COUNT, AUTOMATED 261 10^3/uL (150-450)
== END ==
LOC: M EKG 12:41
PROVIDERS: ATTEND Student in an Organized Health Care Education/Training Program
DX: R00.2 Palpitations (principal); D72.829 Elevated white blood cell count, unspecified; I51.7 Cardiomegaly